=== PATIENT | male | born 1975 | race Caucasian/White ===

== ENCOUNTER 2019-05-10 17:20 | Inpatient (IN) | payer OTHER ==
--- NOTE | 2019-05-10 17:32 | PDOC ---
History of Present Illness - General Chief Complaint: Stab Wound Stated Complaint: LEFT FOOT WOUND Time Seen by Provider: 05/10/19 17:24 History Source: Patient, Friend Exam Limitations: Language Barrier - History of Present Illness Initial Comments: 05/10/19 17:32 43yo M with PMH of NIDDM (has not been on medications for 2 years) presenting to ED with friend and her for L great toe wound. Patient has had the wound for over 1m and says it is getting more painful. He feels the pain when he puts on socks and when pressure is placed, does endorse decreased sensation. He has not had a wound like this before. Denies drainage, fevers, chills, numbness/tingling, imbalance, n/v/d, chest pain, sob, urinary frequency, dysuria. He was diagnosed with DM in 2007 and ran out of medications 2y ago. PMD: none PMH: none PSH: none Allergies: nkda Social: alcohol use. Denies tobacco use 05/10/19 19:09 Joanna Art (Friend): [phone] Past History - Past Medical History Allergies/Adverse Reactions: Allergies Allergy/AdvReac Type Severity Reaction Status Date / Time No Known Allergies Allergy Unverified 05/10/19 17:23 Home Medications: Ambulatory Orders NK [No Known Home Medication] 05/10/19 Review of Systems - Review of Systems Constitutional: No: Chills, Fever, Weakness HEENTM: No: Symptoms Reported Respiratory: No: Symptoms reported Cardiac (ROS): No: Symptoms Reported ABD/GI: No: Symptoms Reported, Constipated, Diarrhea, Nausea, Vomiting, Abdominal cramping : No: Symptoms Reported Musculoskeletal: No: Symptoms Reported Integumentary: Yes: See HPI, Lesions (L plantar great toe plantar surface ulcer) . No: Erythema Neurological: No: Numbness, Seizure, Tingling, Tremors, Weakness *Physical Exam - Physical Exam General Appearance: Yes: Nourished, Appropriately Dressed. No: Apparent Distress HEENT: positive: EOMI, AMAIRANI, Normal ENT Inspection Neck: positive: Trachea midline, Supple. negative: Lymphadenopathy (R), Lymphadenopathy (L) Respiratory/Chest: positive: Lungs Clear, Normal Breath Sounds. negative: Crackles, Rales, Rhonchi, Stridor, Wheezing Cardiovascular: positive: Regular Rhythm, S1, S2, Tachycardia. negative: Edema , JVD, Murmur Vascular Pulses: Dorsalis-Pedis (R): 2+, Doralis-Pedis (L): 2+ Gastrointestinal/Abdominal: positive: Normal Bowel Sounds, Soft. negative: Tender Musculoskeletal: negative: CVA Tenderness Extremity: positive: Normal Capillary Refill. negative: Pedal Edema, Swelling, Calf Tenderness Integumentary: positive: Normal Color, Dry, Warm, Other (3cm L great toe ulceration on plantar surface, unstagable, no bony protrusions or bone surfaces seen. Mild plantar skin changes on R great toe without ulceration). negative: Rash, Swelling Neurologic: positive: manager creative services II-XII NML intact, Fully Oriented, Alert, Normal Mood/ Affect, Normal Response, Motor Strength 02/05 ED Treatment Course - LABORATORY CBC & Chemistry Diagram: 05/10/19 18:10 05/10/19 18:10 Medical Decision Making - Medical Decision Making 05/10/19 17:46 43yo M with PMH of NIDDM (has not been on medications for 2 years) presenting to ED with friend and her for L great toe wound. Patient has had the wound for over 1m and says it is getting more painful. He feels the pain when he puts on socks and when pressure is placed, does endorse decreased sensation. He has not had a wound like this before. Denies drainage, fevers, chills, numbness/tingling, imbalance, n/v/d, chest pain, sob, urinary frequency, dysuria. He was diagnosed with DM in 2007 and ran out of medications 2y ago. Vitals: hr 102, normotensive 99.3 oral temp. Pt refusing rectal temp. PE: 2-3cm circular ulcer on plantar surface of L great toe. No surrounding erythema or warmth, no fluctuance. unstagable. No drainage. sensation intact. not ttp. R toe ulceration developing. Patient likely has diabetic foot ulcer from uncontrolled DM. Will get basic labs , coags, ua and xray of foot to check for bony involvement. wound cultures. Pt would benefit from admission for antibiotics, wound debridement and care. will order cxr and ekg. Will start antibiotics (Rocephin 1g), will place ID consult. 05/10/19 18:43 No white count, does not need cultures at this time. Will give fluids for tachycardia. Labs wnl. gluc 199. Accepted by hospitalist. *DC/Admit/Observation/Transfer Diagnosis at time of Disposition: Diabetic foot ulcer Qualifiers: Diabetic foot ulcer location: toe Diabetes mellitus type: type 2 Laterality: left Non-pressure ulcer stage: unspecified non-pressure ulcer stage Qualified Code(s): E11.621 - Type 2 diabetes mellitus with foot ulcer - Discharge Dispostion Condition at time of disposition: Good Decision to Admit order: Yes - Referrals - Patient Instructions - Post Discharge Activity
--- NOTE | 2019-05-10 17:33 | PDOC ---
Attending Attestation - Resident Resident Name: ChristineSaRuby - ED Attending Attestation I have performed the following: I have examined & evaluated the patient, The case was reviewed & discussed with the resident, I agree w/resident's findings & plan, Exceptions are as noted - HPI HPI: 05/10/19 18:05 Patient with a long history of diabetes, uncontrolled, noncompliant, presents with deep ulcer on the dorsal aspect of the left great toe. He comes in today at the suggestion of a relative, who is familiar with the complications of diabetes including amputation. He has no pain or other symptoms - Physicial Exam PE: 05/10/19 18:06 Physical exam shows that he is afebrile, with otherwise normal vital signs There is a 3 cm area of diabetic ulceration on the plantar aspect of the left great toe mild surrounding erythema. No drainage. No point tenderness. There is also a diabetic ulcer developing on the right great toe in the same area. The patient has decreased sensation in both feet, probably due to his diabetes. He also has facial erythema, telangiectasias, which suggest heavy alcohol consumption. He admits to drinking, denies smoking. - Medical Decision Making 05/10/19 18:09 Assessment: Uncontrolled diabetes, diabetic neuropathy, untreated diabetic foot ulcerations, Plan: Admit for control of diabetes, wound debridement, and antibiotics.
[2019-05-10 17:43] VITALS: BMI 29.9
[2019-05-10 18:31] LABS: BASO % 0.4 % (0-2.0); EOS % 0.8 % (0-4.5); HEMATOCRIT 39.9 % (35.4-49); HEMOGLOBIN 13.9 GM/dl (11.7-16.9); LYMPH % 22.4 % (8-40); MCH 30.1 pg (25.7-33.7); MEAN CELL VOLUME 86.1 fl (80-96); MEAN PLT VOLUME 9.4 fl (7.5-11.1); MONO % 6.1 % (3.8-10.2); NEUT % 70.3 % (42.8-82.8); PLATELET COUNT 270 K/MM3 (134-434); RBC 4.63 M/mm3 (4.00-5.60); RDW 12.2 % (11.9-15.9); WHITE BLOOD COUNT 9.2 K/mm3 (4.0-10.8)
[2019-05-10 18:42] LABS: INR 1.15 (0.82-1.09); PROTHROMBIN TIME (PATIENT) 12.8 SEC (10.2-13.0)
[2019-05-10] MEDS ORDERED: SODIUM CHLORIDE 1,000 ML IV STA (18:43)
[2019-05-10 18:47] LABS: ALBUMIN 4.6 g/dl (3.4-5.0); BILIRUBIN,TOTAL 0.8 mg/dl (0.2-1); CALCIUM 9.5 mg/dl (8.5-10); CREATININE 0.8 mg/dl (0.55-1.3); POTASSIUM 4.3 mmol/L (3.5-5.1); TOT PROT 7.9 g/dl (6.4-8.2)
[2019-05-10] MEDS ORDERED: CEFTRIAXONE 1 GM in DEXTROSE 5%-WATER - 100 ML IVPB ONE (18:57)
--- NOTE | 2019-05-10 19:23 | HP ---
CHIEF COMPLAINT: Foot ulcer PCP: None HISTORY OF PRESENT ILLNESS: 43 year-old male with a PMH significant for DM since 2007 and who has not taken any medication for at least the past two years and who has not seen a health care provider for many years. Patient presented to ED for evaluation of a deep ulcer on the plantar aspect of the left great toe. The ulcer started to develop about 1 1/2 months ago. He experiences pain when he puts his socks on and when pressure is placed. He has decreased sensation in both feel. The wound has been dry, no exudate. He denies fevers, sweats, chills. Recent Travel: No PAST MEDICAL HISTORY: Diabetes PAST SURGICAL HISTORY: None reported Social History: lives with friends in an apartment in [place], works as a patient access registrar Smoking: denies Alcohol: occasoinal beer; last beer 2 weeks ago Drugs: denies Family History: mother 80 lung obstruction; father 86 had DM; 7 siblings alive, medical conditions unknown; no children Allergies No Known Allergies Allergy (Unverified 05/10/19 17:23) HOME MEDICATIONS: Home Medications Medication Instructions Recorded NK [No Known Home Medication] 05/10/19 REVIEW OF SYSTEMS CONSTITUTIONAL: Absent: fever, chills, diaphoresis, generalized weakness, malaise, loss of appetite, weight change HEENT: Absent: rhinorrhea, nasal congestion, throat pain, throat swelling, difficulty swallowing, mouth swelling, ear pain, eye pain, visual changes CARDIOVASCULAR: Absent: chest pain, syncope, palpitations, irregular heart rate, lightheadedness , peripheral edema RESPIRATORY: Absent: cough, shortness of breath, dyspnea with exertion, orthopnea, wheezing, stridor, hemoptysis GASTROINTESTINAL: Absent: abdominal pain, abdominal distension, nausea, vomiting, diarrhea, constipation, melena, hematochezia GENITOURINARY: Absent: dysuria, frequency, urgency, hesitancy, hematuria, flank pain, genital pain MUSCULOSKELETAL: +ulcers bilateral great toes, no pain Absent: myalgia, arthralgia, joint swelling, back pain, neck pain SKIN: Absent: rash, itching, pallor HEMATOLOGIC/IMMUNOLOGIC: Absent: easy bleeding, easy bruising, lymphadenopathy, frequent infections ENDOCRINE: Absent: unexplained weight gain, unexplained weight loss, heat intolerance, cold intolerance NEUROLOGIC: Absent: headache, focal weakness or paresthesias, dizziness, unsteady gait, seizure, mental status changes, bladder or bowel incontinence PSYCHIATRIC: Absent: anxiety, depression, suicidal or homicidal ideation, hallucinations. PHYSICAL EXAMINATION Vital Signs - 24 hr 05/10/19 17:23 Temperature 99.3 F Pulse Rate 102 H Respiratory 18 Rate Blood Pressure 121/89 O2 Sat by Pulse 98 Oximetry (%) GENERAL: Awake, alert, and fully oriented, in no acute distress. HEAD: Facial erythema, telangiectasis EYES: Pupils equal, round and reactive to light, extraocular movements intact, sclera injected appearance EARS, NOSE, THROAT: Ears normal, nares patent, oropharynx clear without exudates. Moist mucous membranes. Poor dentition. LUNGS: Breath sounds equal, clear to auscultation bilaterally. No wheezes, and no crackles. No accessory muscle use. HEART: Regular rate and rhythm, S1 and S2 ABDOMEN: Soft, nontender, not distended UPPER EXTREMITIES: 2+ pulses, warm, well-perfused. No cyanosis. No clubbing. No peripheral edema. LOWER EXTREMITIES: 2+ pulses, warm, well-perfused. No calf tenderness. No peripheral edema. 3cm circular ulcer plantar surface of left great toe, dessicated; right great toe plantar surface ulcer ~1cm NEUROLOGICAL: Cranial nerves II-XII intact. Normal speech. Normal gait. Laboratory Results - last 24 hr 05/10/19 05/10/19 05/10/19 18:10 18:10 18:10 WBC 9.2 RBC 4.63 Hgb 13.9 Hct 39.9 MCV 86.1 MCH 30.1 MCHC 35.0 RDW 12.2 Plt Count 270 MPV 9.4 Absolute Neuts (auto) 6.4 Neutrophils % 70.3 Lymphocytes % 22.4 Monocytes % 6.1 Eosinophils % 0.8 Basophils % 0.4 PT with INR 12.8 INR 1.15 Sodium 136 Potassium 4.3 Chloride 102 Carbon Dioxide 26 Anion Gap 8 BUN 25.0 H Creatinine 0.8 Est GFR (CKD-EPI)AfAm 128.60 Est GFR (CKD-EPI)NonAf 110.96 Random Glucose 199 H Calcium 9.5 Total Bilirubin 0.8 AST 20 ALT 16 Alkaline Phosphatase 109 Total Protein 7.9 Albumin 4.6 ASSESSMENT/PLAN 43 year-old male with a PMH of diabetes on no medication for years. Left great toe diabetic ulcer Right great toe diabetic ulcer --xrays pending; will likely need MRI to r/o osteo --no fever, no leukocytosis, observe off antibiotics --podiatry consult --ID consult Diabetes mellitus --A1C pending --Novolog sliding scale coverage FEN Fluids: PO intake adequate Electrolytes: replete as indicated Nutrition: diabetic diet DVT prophylaxis: subq heparin Dispo: continues to require inpatient care. Full code. Visit type - Emergency Visit Emergency Visit: Yes ED Registration Date: 05/10/19 Care time: The patient presented to the Emergency Department on the above date and was hospitalized for further evaluation of their emergent condition. - New Patient This patient is new to me today: Yes Date on this admission: 05/11/19 - Critical Care Critical Care patient: No
[2019-05-10] MEDS ORDERED: cefTRIAXone SODIUM 1 GM VIAL ONE (19:25)
[2019-05-11 07:42] LABS: BASO % 0.3 % (0-2.0); EOS % 1.6 % (0-4.5); HEMATOCRIT 36.9 % (35.4-49); HEMOGLOBIN 12.6 GM/dl (11.7-16.9); LYMPH % 25.7 % (8-40); MCH 29.8 pg (25.7-33.7); MCHC 34.1 g/dl (32.0-35.9); MEAN CELL VOLUME 87.4 fl (80-96); MEAN PLT VOLUME 9.4 fl (7.5-11.1); MONO % 6.8 % (3.8-10.2); NEUT % 65.6 % (42.8-82.8); PLATELET COUNT 225 K/MM3 (134-434); RBC 4.23 M/mm3 (4.00-5.60); RDW 12.4 % (11.9-15.9); WHITE BLOOD COUNT 6.8 K/mm3 (4.0-10.8)
[2019-05-11 07:57] LABS: ALBUMIN 3.7 g/dl (3.4-5.0); BILIRUBIN,TOTAL 0.7 mg/dl (0.2-1); CREATININE 0.8 mg/dl (0.55-1.3); MAGNESIUM 1.9 mg/dL (1.8-2.4); POTASSIUM 4.6 mmol/L (3.5-5.1); TOT PROT 6.6 g/dl (6.4-8.2)
--- NOTE | 2019-05-11 11:09 | CON.ID ---
Consult - Alcohol/Substance Use Hx Alcohol Use: Yes (OCCASSIONAL) - Smoking History Smoking history: Never smoked Home Medications - Allergies Allergies/Adverse Reactions: Allergies Allergy/AdvReac Type Severity Reaction Status Date / Time No Known Allergies Allergy Unverified 05/10/19 17:23 - Home Medications Home Medications: Ambulatory Orders NK [No Known Home Medication] 05/10/19 Physical Exam Vital Signs: Vital Signs Temperature 97.6 F 05/10/19 23:36 Pulse Rate 65 05/10/19 23:36 Respiratory Rate 19 05/10/19 23:36 Blood Pressure 119/79 05/10/19 23:36 O2 Sat by Pulse Oximetry (%) 98 05/10/19 23:36 Labs: CBC, BMP 05/11/19 07:15 05/11/19 07:15
--- NOTE | 2019-05-11 12:16 | CONSULT ---
Consult - text type - Consultation Consultation Note: Podiatry Consultation: 43 year old poorly controlled diabetic male presented to ED for admission on guidance of his family members for non-healing wound left great toe. Patient relates a 2+ month history of non-healing ulcer, for which he has not sought treatment. He works as a education trainer, does not check his blood sugars regularly and does not treat the ulcer. He denies F/V/N/C/SOB/CP. Currently afebrile. Past Medical History: poorly controlled diabetic, HTN Meds: noted in chart ALL: NKMA REN: Pedal pulses palpable, TG wnl, CFT brisk to all toes. On the left foot, there is a plantar hallux IPJ diabetic ulcer with fibrogranular base, hyperkeratotic edges, no probing to bone, no exposed bone, scant purulence, no fluctuance, no soft tissue crepitus, no streaking cellulitis. Gross digital edema. No ischemic changes. L foot XR: no gross destruction suggestive of osteomyelitis Wound Cx: pending Imp: 43 year old diabetic male with left great toe diabetic ulcer 1. IV abx per infectious disease 2. MRI L foot to evaluate for osteomyelitis left great toe 3. Discussed treatment options at length with patient, he would like to treat with IV abx. 4. Will f/u MRI. Thank you for the courtesy of this consultation. Erma Beckwith DPM
--- NOTE | 2019-05-11 13:08 | PN ---
Physical Exam: SUBJECTIVE: Patient seen and examined OBJECTIVE: Vital Signs Period Temp Pulse Resp BP Sys/Ding Pulse Ox Last 24 Hr 97.6 F-99.3 F 65-102 18-19 119-124/79-89 98-100 GENERAL: The patient is awake, alert, and fully oriented, in no acute distress. HEAD: Normal with no signs of trauma. EYES: PERRL, extraocular movements intact, sclera anicteric, conjunctiva clear. No ptosis. ENT: Ears normal, nares patent, oropharynx clear without exudates, moist mucous membranes. NECK: Trachea midline, full range of motion, supple. LUNGS: Breath sounds equal, clear to auscultation bilaterally, no wheezes, no crackles, no accessory muscle use. HEART: Regular rate and rhythm, S1, S2 without murmur, rub or gallop. ABDOMEN: Soft, nontender, nondistended, normoactive bowel sounds, no guarding, no rebound, no hepatosplenomegaly, no masses. EXTREMITIES: 2+ pulses, warm, well-perfused, no edema. NEUROLOGICAL: Cranial nerves II through XII grossly intact. Normal speech, gait not observed. PSYCH: Normal mood, normal affect. SKIN: Warm, dry, normal turgor, no rashes or lesions noted Laboratory Results - last 24 hr 05/10/19 05/10/19 05/10/19 18:10 18:10 18:10 WBC 9.2 RBC 4.63 Hgb 13.9 Hct 39.9 MCV 86.1 MCH 30.1 MCHC 35.0 RDW 12.2 Plt Count 270 MPV 9.4 Absolute Neuts (auto) 6.4 Neutrophils % 70.3 Lymphocytes % 22.4 Monocytes % 6.1 Eosinophils % 0.8 Basophils % 0.4 PT with INR 12.8 INR 1.15 PTT (Actin FS) Sodium 136 Potassium 4.3 Chloride 102 Carbon Dioxide 26 Anion Gap 8 BUN 25.0 H Creatinine 0.8 Est GFR (CKD-EPI)AfAm 128.60 Est GFR (CKD-EPI)NonAf 110.96 POC Glucometer Random Glucose 199 H Hemoglobin A1c % Calcium 9.5 Magnesium Total Bilirubin 0.8 AST 20 ALT 16 Alkaline Phosphatase 109 Total Protein 7.9 Albumin 4.6 Urine Color Urine Appearance Urine pH Urine Protein Urine Glucose (UA) Urine Ketones Urine Blood Urine Nitrite Urine Bilirubin Urine Urobilinogen Ur Leukocyte Esterase Urine RBC Urine WBC 05/10/19 05/10/19 05/11/19 18:10 19:20 06:21 WBC RBC Hgb Hct MCV MCH MCHC RDW Plt Count MPV Absolute Neuts (auto) Neutrophils % Lymphocytes % Monocytes % Eosinophils % Basophils % PT with INR INR PTT (Actin FS) Sodium Potassium Chloride Carbon Dioxide Anion Gap BUN Creatinine Est GFR (CKD-EPI)AfAm Est GFR (CKD-EPI)NonAf POC Glucometer 178 Random Glucose Hemoglobin A1c % 8.1 H Calcium Magnesium Total Bilirubin AST ALT Alkaline Phosphatase Total Protein Albumin Urine Color Yellow Urine Appearance Clear Urine pH 5.5 Urine Protein 1+ H Urine Glucose (UA) 1+ Urine Ketones Negative Urine Blood Negative Urine Nitrite Negative Urine Bilirubin Negative Urine Urobilinogen 0.2 Ur Leukocyte Esterase Negative Urine RBC 0-2 Urine WBC 0-2 05/11/19 05/11/19 05/11/19 07:15 07:15 07:15 WBC 6.8 RBC 4.23 Hgb 12.6 Hct 36.9 MCV 87.4 MCH 29.8 MCHC 34.1 RDW 12.4 Plt Count 225 MPV 9.4 Absolute Neuts (auto) 4.5 Neutrophils % 65.6 Lymphocytes % 25.7 Monocytes % 6.8 Eosinophils % 1.6 D Basophils % 0.3 PT with INR INR PTT (Actin FS) 28.0 Sodium 139 Potassium 4.6 Chloride 104 Carbon Dioxide 28 Anion Gap 7 L BUN 21.0 H Creatinine 0.8 Est GFR (CKD-EPI)AfAm 128.60 Est GFR (CKD-EPI)NonAf 110.96 POC Glucometer Random Glucose 210 H Hemoglobin A1c % Calcium 9.0 Magnesium 1.9 Total Bilirubin 0.7 AST 17 ALT 13 Alkaline Phosphatase 94 D Total Protein 6.6 Albumin 3.7 Urine Color Urine Appearance Urine pH Urine Protein Urine Glucose (UA) Urine Ketones Urine Blood Urine Nitrite Urine Bilirubin Urine Urobilinogen Ur Leukocyte Esterase Urine RBC Urine WBC Active Medications Generic Name Dose Route Start Last Admin Trade Name Freq PRN Reason Stop Dose Admin Heparin Sodium (Porcine) 5,000 unit 05/11/19 14:00 Heparin - SQ TID [facility] Insulin Aspart 0 units 05/11/19 16:30 Novolog Vial SQ ACHS [facility] Protocol ASSESSMENT/PLAN 43 year-old male with a PMH of diabetes on no medication for years. Left great toe diabetic ulcer Right great toe diabetic ulcer --right foot xray: significant soft tissue swelling --left foot xray: pending dictaton --MRI bilateral feet ordered --no fever, no leukocytosis, observe off antibiotics pending MRI --podiatry following --ID following Diabetes mellitus --A1C 8.1 --Novolog sliding scale coverage FEN Fluids: PO intake adequate Electrolytes: replete as indicated Nutrition: diabetic diet DVT prophylaxis: subq heparin Dispo: continues to require inpatient care. Full code. Visit type - Emergency Visit Emergency Visit: Yes ED Registration Date: 05/10/19 Care time: The patient presented to the Emergency Department on the above date and was hospitalized for further evaluation of their emergent condition. - New Patient This patient is new to me today: No - Critical Care Critical Care patient: No
--- NOTE | 2019-05-11 13:58 | EKG ---
Test Reason : Blood Pressure : / mmHG Vent. Rate : 074 BPM Atrial Rate : 074 BPM P-R Int : 136 ms QRS Dur : 094 ms QT Int : 372 ms P-R-T Axes : 038 017 020 degrees QTc Int : 412 ms NORMAL SINUS RHYTHM NORMAL ECG NO PREVIOUS ECGS AVAILABLE Confirmed by LEXI VELASCO MD ([id number]) on 05/11/2019 1:58:17 PM Referred By: MD GRAF Confirmed By:LEXI VELASCO MD
[2019-05-11] MEDS: HEPARIN NA (PORCINE) 5,000 UNITS/ML 1ML VIAL SQ SCH ×2 (14:29→21:27)
[2019-05-11] MEDS: INSULIN (NOVOLOG) ASPART 100 UNITS/ML 10ML VIAL SQ SCH ×2 (16:49→21:27)
[2019-05-12] MEDS: INSULIN (NOVOLOG) ASPART 100 UNITS/ML 10ML VIAL SQ SCH (06:20)
[2019-05-12] MEDS: HEPARIN NA (PORCINE) 5,000 UNITS/ML 1ML VIAL SQ SCH (06:21)
--- NOTE | 2019-05-12 11:38 | PN ---
Progress Note (short form) - Note Progress Note: PODIATRY 43 Y/O MALE B/L HALLUX ULCERATION WITH UNDERLYING OSTEO; DIAGNOSED ON MRI WILL DISUSS WITH DR COKER FOR HALFWAY IV ABX; IF BIOPSY IS REQUESTED BY ID WE CAN PERFORM EARLY NEXT WEEK OR PATIENT CAN BE D/C AND BIOPSY CAN BE PERFORMED AN OUTPATIENT GIVEN PATIENT IS STABLE. WILL DISCUSS WITH ID AND FOLLOW UP .
--- NOTE | 2019-05-12 12:11 | PN ---
Progress Note, Physician - Current Medication List Current Medications: Active Medications Heparin Sodium (Porcine) (Heparin -) 5,000 unit SQ TID COUNT INCLUDES THE [facility] Last Admin: 05/12/19 06:21 Dose: 5,000 unit Insulin Aspart (Novolog Vial) 0 units SQ ACHS COUNT INCLUDES THE [facility]; Protocol Last Admin: 05/12/19 06:20 Dose: 2 units - Objective Vital Signs: Vital Signs Temperature 98.6 F 05/12/19 06:00 Pulse Rate 68 05/12/19 06:00 Respiratory Rate 18 05/12/19 08:37 Blood Pressure 97/62 05/12/19 06:00 O2 Sat by Pulse Oximetry (%) 98 05/12/19 08:37 Labs: CBC, BMP 05/11/19 07:15 05/11/19 07:15 INR, PTT INR 1.15 (0.82-1.09) 05/10/19 18:10
[2019-05-12 13:46] VITALS: BP 134/84; PULSE 78; TEMP 99
--- NOTE | 2019-05-12 14:51 | DS ---
Physical Exam: SUBJECTIVE: Patient seen and examined OBJECTIVE: Vital Signs Period Temp Pulse Resp BP Sys/Ding Pulse Ox Last 24 Hr 98.2 F-99.0 F 63-78 16-19 97-134/62-84 98-100 PHYSICAL EXAM GENERAL: The patient is awake, alert, and fully oriented, in no acute distress. HEAD: Normal with no signs of trauma. EYES: PERRL, extraocular movements intact, sclera anicteric, conjunctiva clear. ENT: Ears normal, nares patent, oropharynx clear without exudates, moist mucous membranes. NECK: Trachea midline, full range of motion, supple. LUNGS: Breath sounds equal, clear to auscultation bilaterally, no wheezes, no crackles, no accessory muscle use. HEART: Regular rate and rhythm, S1, S2 without murmur, rub or gallop. ABDOMEN: Soft, nontender, nondistended, normoactive bowel sounds, no guarding, no rebound, no hepatosplenomegaly, no masses. EXTREMITIES: 2+ pulses, warm, well-perfused, no edema. NEUROLOGICAL: Cranial nerves II through XII grossly intact. Normal speech, gait not observed. PSYCH: Normal mood, normal affect. SKIN: Warm, dry, normal turgor, no rashes or lesions noted. LABS Laboratory Results - last 24 hr 05/11/19 05/11/19 05/12/19 16:40 21:22 06:14 POC Glucometer 189 202 191 HOSPITAL COURSE: Date of Admission:05/10/19 Date of Discharge: 05/12/19 43 year-old male with a PMH significant for DM since 2007 and who has not taken any medication for at least the past two years and who has not seen a health care provider for many years. Patient presented to ED for evaluation of a deep ulcer on the plantar aspect of the left great toe. The ulcer started to develop about 1 1/2 months ago. He experiences pain when he puts his socks on and when pressure is placed. He has decreased sensation in both feel. The wound has been dry, no exudate. He denies fevers, sweats, chills. Left great toe diabetic ulcer Right great toe diabetic ulcer --MRI showed osteo in both right and left great toes --seen and evaluated by podiatry and ID --plan is to follow up with podiatry on 05/16 at the [facility], will be set up for a bone biopsy; will need m[facility] antibiotics Diabetes mellitus --A1C 8.1 --Novolog sliding scale coverage Minutes to complete discharge: 35 Discharge Summary Reason For Visit: DIABETIC FOOT ULCER. Current Active Problems Diabetic foot ulcer (Acute) Condition: Stable - Instructions Diet, Activity, Other Instructions: You have been diagnosed with osteomyelitis of your right and left great toes. This is an infection that goes into the bones in your toes. You need to have a biopsy done so that the appropriate antibiotics can be ordered for you. An appointment has been made for you with Dr. Beckwith at the [facility] at [facility] for MAY 16 AT 3:00PM. The wound clinic is located on the 5th floor of the hospital. An appointment has also been made for you with Dr. Vasquez at the [facility] for MAY 19 AT 3:15PM. You need follow up care for your diabetes. Referrals: Reilly Beckwith MD [Staff Physician] - 05/16/19 3:00 pm Martin Vasquez MD [Staff Physician] - 05/19/19 3:15 pm Disposition: HOME - Home Medications Comprehensive Discharge Medication List: Ambulatory Orders NK [No Known Home Medication] 05/10/19 This patient is new to me today: No Emergency Visit: Yes ED Registration Date: 05/10/19 Care time: The patient presented to the Emergency Department on the above date and was hospitalized for further evaluation of their emergent condition. Critical Care patient: No - Discharge Referral Referred to [facility] No
== END 2019-05-12 15:18 | disposition home or self-care (01) | DRG 344 ==
LOC: FER 17:20 → FM/S 18:51 → UNDOADMIN 22:18 → FM/S 22:18
PROVIDERS: ADMIT Internal Medicine; ATTEND Nurse Practitioner Acute Care
DX: E11.621 Type 2 diabetes mellitus with foot ulcer (principal); L97.529 Non-pressure chronic ulcer of other part of left foot with unspecified severity; M86.8X7 Other osteomyelitis, ankle and foot; E11.65 Type 2 diabetes mellitus with hyperglycemia; E11.69 Type 2 diabetes mellitus with other specified complication; E11.40 Type 2 diabetes mellitus with diabetic neuropathy, unspecified; Z91.14 Patient's other noncompliance with medication regimen
CPT/HCPCS: 36415; 71046-TC-FY; 73630-TC-LT; 73630-TC-RT-FY; 73718-TC-LT; 73718-TC-RT; 80053; 81003; 81015; 82962; 83036; 83735; 85025; 85610; 85730; 87040; 87070; 87086; 87205; 93005; 99283-25; J1644; J7030

== ENCOUNTER 2019-05-22 09:36 | Inpatient (IN) | payer OTHER ==
--- NOTE | 2019-05-22 09:59 | PDOC ---
History of Present Illness - General Chief Complaint: Wound Stated Complaint: WOUND Time Seen by Provider: 05/22/19 09:59 History Source: Patient Exam Limitations: No Limitations - History of Present Illness Initial Comments: 43 year old male with PMH DM (medication noncompliance), osteomyelitis of the L/ R great toes presented to ED for admission for wound care. Pt complained of left great toe pain. Pt reported the right toe pain has improved from since his recent admission for osteomyelitis. Pt reported he has follow up with wound care since discharge. Call received from Wound Care - no antibiotics to be given, plan for biopsy tomorrow. PCP: none Past History - Past Medical History Allergies/Adverse Reactions: Allergies Allergy/AdvReac Type Severity Reaction Status Date / Time No Known Allergies Allergy Verified 05/22/19 09:47 Home Medications: Ambulatory Orders Sitagliptin Phosphate [Januvia] 100 mg PO BID 05/16/19 COPD: No Diabetes: Yes - Suicide/Smoking/Psychosocial Hx Smoking History: Never smoked Have you smoked in the past 12 months: No Hx Alcohol Use: No Drug/Substance Use Hx: No Review of Systems - Review of Systems Able to Perform ROS?: Yes Comments:: General: denied fever, chills, generalized weakness. HEENT: denied sore throat, rhinorrhea, ear pain. Cardiovascular: denied chest pain, palpitations, syncope, diaphoresis. Respiratory: denied shortness of breath, cough, sputum production, hemoptysis. Gastrointestinal: denied abdominal pain, nausea, vomiting, diarrhea, constipation, blood in stool. Genitourinary: denied dysuria, increased urinary frequency, hematuria, urinary incontinence, flank pain. Back: denied back pain. Musculoskeletal: admitted to toe pain. denied muscle pain. Neurological: denied headache, dizziness, numbness, tingling, weakness. Integumentary: admitted to rash, ulcer. denied laceration, abrasion. Hematologic/Lymphatic: denied bruising or bleeding. *Physical Exam - Vital Signs Last Vital Signs Temp Pulse Resp BP Pulse Ox 98.3 F 77 16 127/78 99 05/22/19 09:44 05/22/19 09:44 05/22/19 09:44 05/22/19 09:44 05/22/19 09:44 - Physical Exam Comments: Constitutional: Well-nourished, Well-developed, appearing stated age. HEENT: head is normocephalic, atraumatic. EOMI. PERRLA. Neck: supple. Full ROM. Cardiovascular: regular heart rhythm. no murmurs. no pericardial friction rub. Respiratory: clear to auscultation bilaterally. no crackles, rhonchi or wheezing. no stridor. Gastrointestinal: soft, nontender. normal bowel sounds. no rebound, guarding, masses. Extremities: peripheral pulses intact. no lower extremity edema. Neurological: CN 2-12 grossly intact. moves all four extremities. Psych: awake, alert, oriented x3. follows commands. answers questions appropriately. ED Treatment Course - LABORATORY CBC & Chemistry Diagram: 05/23/19 06:30 05/23/19 06:30 Medical Decision Making - Medical Decision Making 43 year old male with known osteomyelitis to the L/R great toes, IDDM ( noncompliant) sent to ED by wound care for admission of osteomyelitis for bone biopsy tomorrow. Chart review: -Admitted 05/10/19 for diabetic foot ulcers -Right LE MRI report: Name: [facility] Phys: Haven Glover NP : 1975 Age: 43 Sex: M [facility] Acct : [id number] Loc: /S [address] [place] [address]. Exam Date: 05/11/19 Status: [place] [address] Unit Number: [id number] EXAM#: TYPE/EXAM: RESULT: [id number] MRI/LOWER EXTREMITY MRI W/O- RIGHT MRI of the left foot . Clinical history: Rule out osteomyelitis. Coronal, sagittal and axial T1, T2-weighted images were obtained. There is diffuse soft tissue swelling surrounding the great toe compatible cellulitis. There is abnormal signal intensity changes in the bone marrow of the distal phalanx of the great toe compatible osteomyelitis. No evidence fracture or malalignment. Moderate degenerative changes metatarsophalangeal joints. Impression: Osteomyelitis of the distal phalanx of the great toe with perifocal soft tissue swelling compatible with cellulitis. Reported By: Lisandro Paulson MD 05/11/19 1634 -Left LE MRI report: Name: [facility] Phys: Haven Glover NP : 1975 Age: 43 Sex: M [facility] Acct : [id number] Loc: FM/S [address] Exam Date: 05/11/19 Status: [place] [address] Unit Number: [id number] EXAM#: TYPE/EXAM: RESULT: MRI/LOWER EXTREMITY MRI W/O- LEFT MRI of the right foot . Clinical history: Diabetic rule out osteomyelitis of great toe. Coronal, sagittal and axial T1, T2-weighted images were obtained. There is soft tissue swelling surrounding the medial aspect of the of the great toe. There is minimal edema in the bone marrow of the distal phalanx of the great toe suspected on axial T2 image #13 and on sagittal T2 image #18 compatible with a small focus of osteomyelitis. There is fluid in the first metatarsophalangeal joint. No evidence of fracture or malalignment. Impression: Osteomyelitis distal aspect of the distal phalanx of the great toe with perifocal soft tissue swelling compatible cellulitis. No evidence of fracture or malalignment. Reported By: Lisandro Paulson MD 05/11/19 1636 -Discharged 05/12/19 with Podiatry F/U 05/16 at [facility] and OP bone biopsy with lobsterman antibiotics Initial Vital Signs Temp Pulse Resp BP Pulse Ox 98.3 F 77 16 127/78 99 05/22/19 09:44 05/22/19 09:44 05/22/19 09:44 05/22/19 09:44 05/22/19 09:44 Afebrile. No tachycardia. No tachypnea. No hypotension. No hypoxia on room air. Labs ordered: CBC, CMP, lactate, blood cultures, VBG, acetone Imaging ordered: CXR Medications ordered: tylenol IV once, normal saline bolus 1000 cc once EKG performed at 1051: rate 68, regular rhythm, normal axis, normal intervals, flipped T III, otherwise no acute ST changes. 05/22/19 10:48 CXR report: Name: [facility] Phys: Elsi Rawls : 1975 Age: 43 Sex: M [facility] Acct: [id number] Loc: [facility] [address] [facility] Exam Date: 05/22/19 Status: CAMMY Myles Unit Number: [id number] EXAM#: TYPE/EXAM: RESULT: [id number] RAD/CHEST X-RAY PORTABLE* Sepsis. Portable chest x-ray. Comparison study. May 10, 2019. Patient is rotated to the right side. Unremarkable contour of the cardiomediastinal silhouette. The lungs are well aerated without evidence of a pulmonary infiltrates, atelectasis. No evidence of bulky hilar adenopathy. No evidence of vascular congestive changes. No pneumothorax, or large pleural effusion is seen. The visualized osseous structures appear intact. Impression. No evidence of active pulmonary disease. Reported By: Darius Hi MD 05/22/19 1033 05/22/19 13:48 CBC WBC 6.3 K/mm3 (4.0-10.0) 05/22/19 11:15 RBC 4.32 M/mm3 (4.00-5.60) 05/22/19 11:15 Hgb 12.8 GM/dL (11.7-16.9) 05/22/19 11:15 Hct 36.7 % (35.4-49) 05/22/19 11:15 MCV 84.8 fl (80-96) 05/22/19 11:15 MCH 29.6 pg (25.7-33.7) 05/22/19 11:15 MCHC 34.9 g/dl (32.0-35.9) 05/22/19 11:15 RDW 13.3 % (11.9-15.9) 05/22/19 11:15 Plt Count 228 K/MM3 (134-434) 05/22/19 11:15 MPV 9.6 fl (7.5-11.1) 05/22/19 11:15 Absolute Neuts (auto) 4.2 K/mm3 (1.5-8.0) 05/22/19 11:15 Neutrophils % 66.2 % (42.8-82.8) 05/22/19 11:15 Lymphocytes % 26.1 % (8-40) 05/22/19 11:15 Monocytes % 6.4 % (3.8-10.2) 05/22/19 11:15 Eosinophils % 0.9 % (0-4.5) 05/22/19 11:15 Basophils % 0.4 % (0-2.0) 05/22/19 11:15 Nucleated RBC % 0 % (0-0) 05/22/19 11:15 No leukocytosis. No anemia. CMP Sodium 138 mmol/L (136-145) 05/22/19 11:15 Potassium 4.2 mmol/L (3.5-5.1) 05/22/19 11:15 Chloride 104 mmol/L (98-107) 05/22/19 11:15 Carbon Dioxide 29 mmol/L (21-32) 05/22/19 11:15 Anion Gap 5 MMOL/L (8-16) L 05/22/19 11:15 BUN 18.2 mg/dL (7-18) H 05/22/19 11:15 Creatinine 0.8 mg/dL (0.55-1.3) 05/22/19 11:15 Est GFR (CKD-EPI)AfAm 128.60 05/22/19 11:15 Est GFR (CKD-EPI)NonAf 110.96 05/22/19 11:15 Random Glucose 158 mg/dL (74-106) H 05/22/19 11:15 Lactic Acid 1.0 mmol/L (0.4-2.0) 05/22/19 11:15 Calcium 9.5 mg/dL (8.5-10.1) 05/22/19 11:15 Total Bilirubin 0.5 mg/dL (0.2-1) 05/22/19 11:15 AST 10 U/L (15-37) L 05/22/19 11:15 ALT 18 U/L (13-61) 05/22/19 11:15 Alkaline Phosphatase 102 U/L (45-117) 05/22/19 11:15 Troponin I 0.00 ng/ml (0.00-0.05) 05/22/19 11:15 Total Protein 7.4 g/dl (6.4-8.2) 05/22/19 11:15 Albumin 3.9 g/dl (3.4-5.0) 05/22/19 11:15 No electrolyte abnormalities. No RAMIN. No lactic acidosis. Troponin undetectable. Urine Test Results Urine Color Yellow 05/22/19 13:30 Urine Appearance Clear 05/22/19 13:30 Urine pH 5.5 (5.0-8.0) 05/22/19 13:30 Ur Specific [place] 1.010 (1.010-1.035) 05/22/19 13:30 Urine Protein Negative (NEGATIVE) 05/22/19 13:30 Urine Glucose (UA) Negative (NEGATIVE) 05/22/19 13:30 Urine Ketones Negative (NEGATIVE) 05/22/19 13:30 Urine Blood Negative (NEGATIVE) 05/22/19 13:30 Urine Nitrite Negative (NEGATIVE) 05/22/19 13:30 Urine Bilirubin Negative (NEGATIVE) 05/22/19 13:30 Ur Leukocyte Esterase Negative (NEGATIVE) 05/22/19 13:30 Negative for UTI. Pt has no PCP. Pending admission to Dr. Steinberg. 05/22/19 15:09 Dr. Rogers spoke with Dr. Steinberg, who agrees with admission. Pending admission. *DC/Admit/Observation/Transfer Diagnosis at time of Disposition: Osteomyelitis - Discharge Dispostion Disposition: TRANSFER ACUTE CARE/OTHER HOSP Condition at time of disposition: Stable Decision to Admit order: Yes - Referrals - Patient Instructions - Post Discharge Activity
[2019-05-22] MEDS ORDERED: SODIUM CHLORIDE 1,000 ML IV STA (10:00)
[2019-05-22] MEDS ORDERED: ACETAMINOPHEN 1000 MG/100 ML VIAL (NON FORMULARY) IVPB ONE (10:00)
[2019-05-22 11:26] LABS: VENOUS PC02 48.3 mmHg (41-51); VENOUS PH 7.37 (7.31-7.41)
[2019-05-22 11:40] LABS: VENOUS PO2 < 49.0 mmHg (30-40)
[2019-05-22 11:47] LABS: BASO % 0.4 % (0-2.0); EOS % 0.9 % (0-4.5); HEMATOCRIT 36.7 % (35.4-49); HEMOGLOBIN 12.8 GM/dL (11.7-16.9); LYMPH % 26.1 % (8-40); MCH 29.6 pg (25.7-33.7); MCHC 34.9 g/dl (32.0-35.9); MEAN CELL VOLUME 84.8 fl (80-96); MEAN PLT VOLUME 9.6 fl (7.5-11.1); MONO % 6.4 % (3.8-10.2); NEUT % 66.2 % (42.8-82.8); PLATELET COUNT 228 K/MM3 (134-434); RBC 4.32 M/mm3 (4.00-5.60); RDW 13.3 % (11.9-15.9); WHITE BLOOD COUNT 6.3 K/mm3 (4.0-10.0)
[2019-05-22 12:00] LABS: INR 1.01 (0.83-1.09); PROTHROMBIN TIME (PATIENT) 11.9 SEC (9.7-13.0)
[2019-05-22 12:03] LABS: ALBUMIN 3.9 g/dl (3.4-5.0); BILIRUBIN,TOTAL 0.5 mg/dL (0.2-1); BLOOD UREA NITROGEN 18.2 mg/dL (7-18); CALCIUM 9.5 mg/dL (8.5-10.1); CREATININE 0.8 mg/dL (0.55-1.3); POTASSIUM 4.2 mmol/L (3.5-5.1); TOT PROT 7.4 g/dl (6.4-8.2)
[2019-05-22 13:47] LABS: PH,URINE 5.5 (5.0-8.0); URINE APPEARANCE CLEAR; URINE BILIRUBIN NEGATIVE (NEGATIVE); URINE COLOR YELLOW; URINE GLUCOSE (UA) NEGATIVE (NEGATIVE); URINE KETONE NEGATIVE (NEGATIVE); URINE LEUK ESTERASE NEGATIVE (NEGATIVE); URINE NITRITE NEGATIVE (NEGATIVE); URINE PROTEIN NEGATIVE (NEGATIVE); URINE UROBILINOGEN 0.2 mg/dL (0.2-1.0)
--- NOTE | 2019-05-22 13:53 | PDOC ---
Documentation entered by Violet Streeter SCRIBE, acting as scribe for Casandra Bermudez MD. Casandra Bermudez MD: This documentation has been prepared by the Ferdinand benito Adrianna, SCRIBE, under my direction and personally reviewed by me in its entirety. I confirm that the documentation accurately reflects all work, treatment, procedures, and medical decision making performed by me. Attending Attestation - Resident Resident Name: Elsi Rawls - HPI HPI: The patient is a 43 year old male, with a significant PMH of DM (noncompliant with medications) and osteomyelitis of the L and R great toes, who presents to the ED for admission for wound care. Patient notes his R great toe pain has progressively gotten better since his admission 10 days ago for osteomyelitis, but he now reports L great toe pain. Wound Care asks that no antibiotics are to be given, and the patient will have a biopsy tomorrow. Allergies: NKA, NKDA Surgical History: None reported Social History: Denies EtOH, tobacco, or illicit drug use PCP: None - Physicial Exam PE: 05/22/19 13:50 Agree with resident exam. Patient is alert and oriented and in no acute distress. + 1 cm wound on L second toe without surrounding erythema. - Medical Decision Making 05/22/19 13:51 Pt presents to the ED after sent in for admission for osteo of the toe. Podiatry requesting that antibiotics not be started because of planned bone biopsy. Will check labs and admit to medicine. Heart Score/ECG Review - Age Age: </= 45 - ECG Intrepretation Rhythm: Regular Rhythm - ECG Impressions Normal ECG: Yes ED Treatment Course - LABORATORY CBC & Chemistry Diagram: 05/22/19 11:15 05/22/19 11:15 - ADDITIONAL ORDERS Additional order review: Laboratory Results 05/22/19 05/22/19 05/22/19 13:50 13:30 11:15 PT with INR INR PTT (Actin FS) VBG pH POC VBG pCO2 POC VBG pO2 VBG HCO3 VBG O2 Sat (Fred) VBG Base Excess Sodium Potassium Chloride Carbon Dioxide Anion Gap BUN Creatinine Est GFR (CKD-EPI)AfAm Est GFR (CKD-EPI)NonAf Random Glucose Lactic Acid Calcium Total Bilirubin AST ALT Alkaline Phosphatase Troponin I Total Protein Albumin Urine Color Yellow Urine Appearance Clear Urine pH 5.5 Ur Specific [place] 1.010 Urine Protein Negative Urine Glucose (UA) Negative Urine Ketones Negative Urine Blood Negative Urine Nitrite Negative Urine Bilirubin Negative Urine Urobilinogen 0.2 Ur Leukocyte Esterase Negative Acetone, Qual Negative Blood Type A NEGATIVE Antibody Screen 05/22/19 05/22/19 05/22/19 11:15 11:15 11:15 PT with INR 11.90 INR 1.01 PTT (Actin FS) VBG pH 7.37 POC VBG pCO2 48.3 POC VBG pO2 < 49.0 H VBG HCO3 26.9 VBG O2 Sat (Fred) 57.3 L VBG Base Excess 1.5 Sodium Potassium Chloride Carbon Dioxide Anion Gap BUN Creatinine Est GFR (CKD-EPI)AfAm Est GFR (CKD-EPI)NonAf Random Glucose Lactic Acid Calcium Total Bilirubin AST ALT Alkaline Phosphatase Troponin I Total Protein Albumin Urine Color Urine Appearance Urine pH Ur Specific [place] Urine Protein Urine Glucose (UA) Urine Ketones Urine Blood Urine Nitrite Urine Bilirubin Urine Urobilinogen Ur Leukocyte Esterase Acetone, Qual Blood Type A NEGATIVE Antibody Screen Negative 05/22/19 05/22/19 05/22/19 11:15 11:15 11:15 PT with INR INR PTT (Actin FS) 33.0 VBG pH POC VBG pCO2 POC VBG pO2 VBG HCO3 VBG O2 Sat (Fred) VBG Base Excess Sodium 138 Potassium 4.2 Chloride 104 Carbon Dioxide 29 Anion Gap 5 L BUN 18.2 H Creatinine 0.8 Est GFR (CKD-EPI)AfAm 128.60 Est GFR (CKD-EPI)NonAf 110.96 Random Glucose 158 H Lactic Acid 1.0 Calcium 9.5 Total Bilirubin 0.5 AST 10 L ALT 18 Alkaline Phosphatase 102 Troponin I Total Protein 7.4 Albumin 3.9 Urine Color Urine Appearance Urine pH Ur Specific [place] Urine Protein Urine Glucose (UA) Urine Ketones Urine Blood Urine Nitrite Urine Bilirubin Urine Urobilinogen Ur Leukocyte Esterase Acetone, Qual Blood Type Antibody Screen 05/22/19 11:15 PT with INR INR PTT (Actin FS) VBG pH POC VBG pCO2 POC VBG pO2 VBG HCO3 VBG O2 Sat (Fred) VBG Base Excess Sodium Potassium Chloride Carbon Dioxide Anion Gap BUN Creatinine Est GFR (CKD-EPI)AfAm Est GFR (CKD-EPI)NonAf Random Glucose Lactic Acid Calcium Total Bilirubin AST ALT Alkaline Phosphatase Troponin I 0.00 Total Protein Albumin Urine Color Urine Appearance Urine pH Ur Specific [place] Urine Protein Urine Glucose (UA) Urine Ketones Urine Blood Urine Nitrite Urine Bilirubin Urine Urobilinogen Ur Leukocyte Esterase Acetone, Qual Blood Type Antibody Screen 05/22/19 11:15 RBC 4.32 MCV 84.8 MCHC 34.9 RDW 13.3 MPV 9.6 Neutrophils % 66.2 Lymphocytes % 26.1 Monocytes % 6.4 Eosinophils % 0.9 Basophils % 0.4 - RADIOLOGY Radiograph Interpretation: EXAM#: TYPE/EXAM: RESULT: [id number] RAD/CHEST X-RAY PORTABLE* Sepsis. Impression. No evidence of active pulmonary disease. Reported By: Darius Hi MD 05/22/19 10:33 - Medications Given in the ED: ED Medications Discontinued Medications Generic Name Dose Route Start Last Admin Trade Name Freq PRN Reason Stop Dose Admin Acetaminophen 1,000 mg 05/22/19 10:00 05/22/19 11:15 Ofirmev Injection - IVPB 05/22/19 10:01 Not Given ONCE ONE Sodium Chloride 1,000 mls @ 1,000 mls/hr 05/22/19 10:00 05/22/19 11:15 Normal Saline - IV 05/22/19 10:59 1,000 mls/hr ASDIR STA Administration
--- NOTE | 2019-05-22 19:13 | PN ---
Progress Note (short form) - Note Progress Note: Podiatry Brief Note: 43 year old diabetic male, (+) osteomyelitis left and right hallux on MRI from prior admission. [facility] with [facility] Plan for debridement and bone biopsy left great toe tomorrow morning in OR. NPO at midnight order placed. Will evaluate patient tomorrow. Erma Beckwith DPM
--- NOTE | 2019-05-22 19:27 | HP ---
Admitting History and Physical - Primary Care Physician PCP: Delta Steinberg - Admission History of Present Illness: -43 year old male, with a significant PMH of DM (noncompliant with medications) and osteomyelitis of the L and R great toes, who presents to the ED for admission for wound care. Patient notes his R great toe pain has progressively gotten better since his admission 10 days ago for osteomyelitis, but he now reports L great toe pain. Wound Care asks that no antibiotics are to be given, and the patient will have a biopsy tomorrow. - Past Medical History Endocrine: Yes: Diabetes Mellitus - Smoking History Smoking history: Never smoked Have you smoked in the past 12 months: No - Alcohol/Substance Use Hx Alcohol Use: No Home Medications - Allergies Allergies/Adverse Reactions: Allergies Allergy/AdvReac Type Severity Reaction Status Date / Time No Known Allergies Allergy Verified 05/22/19 09:47 - Home Medications Home Medications: Ambulatory Orders Sitagliptin Phosphate [Januvia] 100 mg PO BID 05/16/19 Physical Examination Vital Signs: Vital Signs Temperature 98.1 F 05/22/19 18:43 Pulse Rate 70 05/22/19 18:43 Respiratory Rate 18 05/22/19 18:43 Blood Pressure 123/72 05/22/19 18:43 O2 Sat by Pulse Oximetry (%) 100 05/22/19 18:43 Constitutional: Yes: No Distress HENT: Yes: Atraumatic Neck: Yes: Supple Cardiovascular: Yes: Regular Rate and Rhythm Respiratory: Yes: CTA Bilaterally Gastrointestinal: Yes: Normal Bowel Sounds Labs: CBC, BMP 05/22/19 11:15 05/22/19 11:15 Problem List - Problems (1) Osteomyelitis Assessment/Plan: L hallux for biopsy and debridement Code(s): M86.9 - OSTEOMYELITIS, UNSPECIFIED (2) Diabetic foot ulcer Assessment/Plan: monitor blood sugars insulin coverage Code(s): E11.621 - TYPE 2 DIABETES MELLITUS WITH FOOT ULCER; L97.509 - NON- PRESSURE CHRONIC ULCER OTH PRT UNSP FOOT W UNSP SEVERITY Qualifiers: Diabetic foot ulcer location: toe Diabetes mellitus type: type 2 Laterality: left Non-pressure ulcer stage: unspecified non-pressure ulcer stage Qualified Code(s): E11.621 - Type 2 diabetes mellitus with foot ulcer; L97.529 - Non-pressure chronic ulcer of other part of left foot with unspecified severity Assessment/Plan Laboratory Tests 05/22/19 05/22/19 05/22/19 11:15 11:15 11:15 WBC 6.3 RBC 4.32 Hgb 12.8 Hct 36.7 MCV 84.8 MCH 29.6 MCHC 34.9 RDW 13.3 Plt Count 228 MPV 9.6 Absolute Neuts (auto) 4.2 Neutrophils % 66.2 Lymphocytes % 26.1 Monocytes % 6.4 Eosinophils % 0.9 Basophils % 0.4 Nucleated RBC % 0 PT with INR INR PTT (Actin FS) 33.0 VBG pH POC VBG pCO2 POC VBG pO2 VBG HCO3 VBG O2 Sat (Fred) VBG Base Excess Sodium Potassium Chloride Carbon Dioxide Anion Gap BUN Creatinine Est GFR (CKD-EPI)AfAm Est GFR (CKD-EPI)NonAf Random Glucose Lactic Acid Calcium Total Bilirubin AST ALT Alkaline Phosphatase Troponin I 0.00 Total Protein Albumin Urine Color Urine Appearance Urine pH Ur Specific [place] Urine Protein Urine Glucose (UA) Urine Ketones Urine Blood Urine Nitrite Urine Bilirubin Urine Urobilinogen Ur Leukocyte Esterase Acetone, Qual Blood Type Antibody Screen 05/22/19 05/22/19 05/22/19 11:15 11:15 11:15 WBC RBC Hgb Hct MCV MCH MCHC RDW Plt Count MPV Absolute Neuts (auto) Neutrophils % Lymphocytes % Monocytes % Eosinophils % Basophils % Nucleated RBC % PT with INR 11.90 INR 1.01 PTT (Actin FS) VBG pH POC VBG pCO2 POC VBG pO2 VBG HCO3 VBG O2 Sat (Fred) VBG Base Excess Sodium 138 Potassium 4.2 Chloride 104 Carbon Dioxide 29 Anion Gap 5 L BUN 18.2 H Creatinine 0.8 Est GFR (CKD-EPI)AfAm 128.60 Est GFR (CKD-EPI)NonAf 110.96 Random Glucose 158 H Lactic Acid 1.0 Calcium 9.5 Total Bilirubin 0.5 AST 10 L ALT 18 Alkaline Phosphatase 102 Troponin I Total Protein 7.4 Albumin 3.9 Urine Color Urine Appearance Urine pH Ur Specific [place] Urine Protein Urine Glucose (UA) Urine Ketones Urine Blood Urine Nitrite Urine Bilirubin Urine Urobilinogen Ur Leukocyte Esterase Acetone, Qual Blood Type Antibody Screen 05/22/19 05/22/19 05/22/19 11:15 11:15 11:15 WBC RBC Hgb Hct MCV MCH MCHC RDW Plt Count MPV Absolute Neuts (auto) Neutrophils % Lymphocytes % Monocytes % Eosinophils % Basophils % Nucleated RBC % PT with INR INR PTT (Actin FS) VBG pH 7.37 POC VBG pCO2 48.3 POC VBG pO2 < 49.0 H VBG HCO3 26.9 VBG O2 Sat (Fred) 57.3 L VBG Base Excess 1.5 Sodium Potassium Chloride Carbon Dioxide Anion Gap BUN Creatinine Est GFR (CKD-EPI)AfAm Est GFR (CKD-EPI)NonAf Random Glucose Lactic Acid Calcium Total Bilirubin AST ALT Alkaline Phosphatase Troponin I Total Protein Albumin Urine Color Urine Appearance Urine pH Ur Specific [place] Urine Protein Urine Glucose (UA) Urine Ketones Urine Blood Urine Nitrite Urine Bilirubin Urine Urobilinogen Ur Leukocyte Esterase Acetone, Qual Negative Blood Type A NEGATIVE Antibody Screen Negative 05/22/19 05/22/19 13:30 13:50 WBC RBC Hgb Hct MCV MCH MCHC RDW Plt Count MPV Absolute Neuts (auto) Neutrophils % Lymphocytes % Monocytes % Eosinophils % Basophils % Nucleated RBC % PT with INR INR PTT (Actin FS) VBG pH POC VBG pCO2 POC VBG pO2 VBG HCO3 VBG O2 Sat (Fred) VBG Base Excess Sodium Potassium Chloride Carbon Dioxide Anion Gap BUN Creatinine Est GFR (CKD-EPI)AfAm Est GFR (CKD-EPI)NonAf Random Glucose Lactic Acid Calcium Total Bilirubin AST ALT Alkaline Phosphatase Troponin I Total Protein Albumin Urine Color Yellow Urine Appearance Clear Urine pH 5.5 Ur Specific [place] 1.010 Urine Protein Negative Urine Glucose (UA) Negative Urine Ketones Negative Urine Blood Negative Urine Nitrite Negative Urine Bilirubin Negative Urine Urobilinogen 0.2 Ur Leukocyte Esterase Negative Acetone, Qual Blood Type A NEGATIVE Antibody Screen Active Medications Generic Name Dose Route Start Last Admin Trade Name Freq PRN Reason Stop Dose Admin Heparin Sodium (Porcine) 5,000 unit 05/23/19 22:00 05/24/19 10:49 Heparin - SQ 5,000 unit BID JUDITH Administration Ceftriaxone Sodium 2 gm/ 100 mls @ 200 mls/hr 05/24/19 10:00 05/24/19 12:29 Dextrose IVPB 200 mls/hr DAILY JUDITH Administration Protocol Insulin Aspart 1 vial 05/24/19 16:30 05/24/19 17:11 Novolog Vial Sliding Scale - SQ Not Given TIDAC JUDITH Protocol Insulin Aspart 1 vial 05/24/19 22:00 Novolog Vial Sliding Scale - SQ HS JUDITH Protocol Oxycodone HCl 5 mg 05/23/19 12:49 05/23/19 18:03 Roxicodone - PO 5 mg Q4H PRN Administration PAIN LEVEL 1-5 Sitagliptin Phosphate 100 mg 05/24/19 07:00 05/24/19 06:08 Januvia - PO 100 mg DAILY@0700 JUDITH Administration
[2019-05-22 21:14] VITALS: BMI 31.1
[2019-05-22] MEDS: HEPARIN NA (PORCINE) 5,000 UNITS/ML 1ML VIAL SQ SCH (21:32)
[2019-05-23 07:33] LABS: BASO % 0.3 % (0-2.0); EOS % 1.3 % (0-4.5); HEMOGLOBIN 12.1 GM/dL (11.7-16.9); LYMPH % 22.4 % (8-40); MCH 29.6 pg (25.7-33.7); MCHC 34.7 g/dl (32.0-35.9); MEAN CELL VOLUME 85.4 fl (80-96); MEAN PLT VOLUME 9.5 fl (7.5-11.1); MONO % 5.4 % (3.8-10.2); NEUT % 70.6 % (42.8-82.8); PLATELET COUNT 210 K/MM3 (134-434); RDW 13.5 % (11.9-15.9); WHITE BLOOD COUNT 7.1 K/mm3 (4.0-10.0)
[2019-05-23 08:15] LABS: ALBUMIN 3.4 g/dl (3.4-5.0); BLOOD UREA NITROGEN 14.4 mg/dL (7-18); CALCIUM 8.9 mg/dL (8.5-10.1); CREATININE 0.8 mg/dL (0.55-1.3); POTASSIUM 4.3 mmol/L (3.5-5.1); TOT PROT 6.7 g/dl (6.4-8.2)
[2019-05-23] MEDS ORDERED: PROPOFOL 20 ML ONE (10:11)
[2019-05-23] MEDS ORDERED: MIDAZOLAM HCL 2 MG/2 ML SINGLE DOSE VIAL ONE (10:11)
[2019-05-23] MEDS: HEPARIN NA (PORCINE) 5,000 UNITS/ML 1ML VIAL SQ SCH ×2 (10:24→21:39)
[2019-05-23] MEDS ORDERED: LIDOCAINE HCL 2% (20ML MULTI-DOSE VIAL) NR ONE (10:54)
--- NOTE | 2019-05-23 11:42 | CON.ID ---
Consult Consult Specialty:: infectious diseases Referred by:: Reason for Consultation:: osteo of the foot - History of Present Illness Chief Complaint: non healing wound of the leg History of Present Illness: 43 year old male, with a significant PMH of DM (noncompliant with medications) and osteomyelitis of the L and R great toes, who presents to the ED for admission for wound care. Patient notes his R great toe pain has progressively gotten better since his admission 10 days ago for osteomyelitis, but he now reports L great toe pain. Wound Care asks that no antibiotics are to be given, and the patient will have a biopsy tomorrow. patient was seen by podiatry and the plan is to take for bone biopsy - History Source History Provided By: Patient, Medical Record Limitations to Obtaining History: Language Barrier - Past Medical History Endocrine: Yes: Diabetes Mellitus - Alcohol/Substance Use Hx Alcohol Use: No - Smoking History Smoking history: Never smoked Have you smoked in the past 12 months: No Home Medications - Allergies Allergies/Adverse Reactions: Allergies Allergy/AdvReac Type Severity Reaction Status Date / Time No Known Allergies Allergy Verified 05/22/19 09:47 - Home Medications Home Medications: Ambulatory Orders Sitagliptin Phosphate [Januvia] 100 mg PO BID 05/16/19 Review of Systems - Review of Systems Constitutional: reports: No Symptoms Eyes: reports: No Symptoms HENT: reports: No Symptoms Neck: reports: No Symptoms Cardiovascular: reports: No Symptoms Respiratory: reports: No Symptoms Gastrointestinal: reports: No Symptoms Genitourinary: reports: No Symptoms Musculoskeletal: reports: Muscle Pain Integumentary: reports: Change in Color, Wound Neurological: reports: No Symptoms Endocrine: reports: No Symptoms Hematology/Lymphatic: reports: No Symptoms Psychiatric: reports: No Symptoms Physical Exam Vital Signs: Vital Signs Temperature 98.4 F 05/23/19 05:00 Pulse Rate 71 05/23/19 05:00 Respiratory Rate 18 05/23/19 06:00 Blood Pressure 107/64 05/23/19 05:00 O2 Sat by Pulse Oximetry (%) 100 05/23/19 06:00 Constitutional: Yes: Well Nourished, No Distress, Calm HENT: Yes: Atraumatic Neck: Yes: Supple, Trachea Midline Cardiovascular: Yes: Regular Rate and Rhythm Respiratory: Yes: Regular, CTA Bilaterally Gastrointestinal: Yes: Normal Bowel Sounds, Soft Musculoskeletal: Yes: WNL Extremities: Yes: Other (left foot wound/bone) Wound/Incision: Yes: Dressing Dry and Intact Neurological: Yes: Alert, Oriented Psychiatric: Yes: Alert, Oriented Labs: CBC, BMP 05/23/19 06:30 05/23/19 06:30 Imaging - Results Chest X-ray: Report Reviewed, Image Reviewed X-ray: Report Reviewed, Image Reviewed Assessment/Plan Problem List - Problems (1) Osteomyelitis Code(s): M86.9 - OSTEOMYELITIS, UNSPECIFIED (2) Diabetic foot ulcer Code(s): E11.621 - TYPE 2 DIABETES MELLITUS WITH FOOT ULCER; L97.509 - NON- PRESSURE CHRONIC ULCER OTH PRT UNSP FOOT W UNSP SEVERITY Qualifiers: Diabetic foot ulcer location: toe Diabetes mellitus type: type 2 Laterality: left Non-pressure ulcer stage: unspecified non-pressure ulcer stage Qualified Code(s): E11.621 - Type 2 diabetes mellitus with foot ulcer; L97.529 - Non-pressure chronic ulcer of other part of left foot with unspecified severity (3) Diabetes Code(s): E11.9 - TYPE 2 DIABETES MELLITUS WITHOUT COMPLICATIONS 4 wound infection plan await for bone biopsy once we have the biopsy then we will start on abx patient will need it for 4-6 weeks will d/w the podiatry
[2019-05-23] MEDS ORDERED: ceFAZolin SODIUM 1 GM VIAL ONE (12:21)
[2019-05-23] MEDS ORDERED: ceFAZolin SODIUM 1 GM VIAL IVPB ONE (12:23)
[2019-05-23] MEDS ORDERED: LIDOCAINE HCL 2% (50ML VIAL) INF ONE (12:30)
--- NOTE | 2019-05-23 15:26 | OP ---
Operative Note - Note: Operative Date: 05/23/19 Pre-Operative Diagnosis: left hallux diabetic ulcer with osteomyelitis Operation: debridement of left hallux diabetic ulcer with bone biopsy Post-Operative Diagnosis: Same as Pre-op Surgeon: Reilly Beckwith Anesthesia: Local, MAC Specimens Removed: bone left hallux Estimated Blood Loss (mls): 20 Instrument used (Debridements only): #15 blade scalpel and forceps Operative Report Dictated: Yes
--- NOTE | 2019-05-23 16:17 | EKG ---
Test Reason : Blood Pressure : / mmHG Vent. Rate : 068 BPM Atrial Rate : 068 BPM P-R Int : 136 ms QRS Dur : 088 ms QT Int : 370 ms P-R-T Axes : 027 009 009 degrees QTc Int : 393 ms POOR DATA QUALITY, INTERPRETATION MAY BE ADVERSELY AFFECTED NORMAL SINUS RHYTHM NORMAL ECG WHEN COMPARED WITH ECG OF 10-MAY-2019 19:42, NO SIGNIFICANT CHANGE WAS FOUND Confirmed by MD MARYSOL, HATTIE ([id number]) on 05/23/2019 4:17:16 PM Referred By: Confirmed By:HATTIE GREGG MD
--- NOTE | 2019-05-23 16:57 | PN ---
Progress Note, Physician - Current Medication List Current Medications: Active Medications Heparin Sodium (Porcine) (Heparin -) 5,000 unit SQ BID [facility] Oxycodone HCl (Roxicodone -) 5 mg PO Q4H PRN PRN Reason: PAIN LEVEL 1-5 Sitagliptin Phosphate (Januvia -) 100 mg PO DAILY@0700 [facility] - Objective Vital Signs: Vital Signs Temperature 98.7 F 05/23/19 14:20 Pulse Rate 82 05/23/19 14:20 Respiratory Rate 20 05/23/19 14:20 Blood Pressure 116/68 05/23/19 14:20 O2 Sat by Pulse Oximetry (%) 96 05/23/19 13:40 Constitutional: Yes: No Distress HENT: Yes: Atraumatic Neck: Yes: Supple Cardiovascular: Yes: Regular Rate and Rhythm Respiratory: Yes: CTA Bilaterally Gastrointestinal: Yes: Normal Bowel Sounds Extremities: Yes: Other (L foot in dressing) Neurological: Yes: Alert, Oriented Labs: CBC, BMP 05/23/19 06:30 05/23/19 06:30 INR, PTT INR 1.01 (0.83-1.09) 05/22/19 11:15 Problem List - Problems (1) Osteomyelitis Assessment/Plan: L hallux s/p biopsy and debridement Code(s): M86.9 - OSTEOMYELITIS, UNSPECIFIED (2) Diabetic foot ulcer Assessment/Plan: monitor blood sugars insulin coverage Code(s): E11.621 - TYPE 2 DIABETES MELLITUS WITH FOOT ULCER; L97.509 - NON- PRESSURE CHRONIC ULCER OTH PRT UNSP FOOT W UNSP SEVERITY Qualifiers: Diabetic foot ulcer location: toe Diabetes mellitus type: type 2 Laterality: left Non-pressure ulcer stage: unspecified non-pressure ulcer stage Qualified Code(s): E11.621 - Type 2 diabetes mellitus with foot ulcer; L97.529 - Non-pressure chronic ulcer of other part of left foot with unspecified severity (3) Diabetes Code(s): E11.9 - TYPE 2 DIABETES MELLITUS WITHOUT COMPLICATIONS
[2019-05-23] MEDS: oxyCODONE HCL 5 MG TABLET PO PRN (18:03)
--- NOTE | 2019-05-23 23:45 | OP ---
DATE OF OPERATION: 05/23/2019 PREOPERATIVE DIAGNOSIS: Left hallux diabetic ulcer with osteomyelitis. POSTOPERATIVE DIAGNOSIS: Left hallux diabetic ulcer with osteomyelitis. PROCEDURE: Left hallux debridement of diabetic ulcer with bone biopsy. SURGEON: Reilly Beckwith DPM DOLL DRESSER: None. HEMOSTASIS: Surgical dissection. ANESTHESIA: IV sedation with local. ESTIMATED BLOOD LOSS: 20 mL. PATHOLOGY: Bone of left great toe. DESCRIPTION OF PROCEDURE: Patient was brought to the operating room and placed on the operating table in the supine position. Following induction of IV sedation, local anesthesia was achieved utilizing 10 mL of 2% lidocaine plain. The left foot was scrubbed, prepped, and draped in the usual sterile fashion. Attention was directed to the left great toe where a plantar IPJ diabetic ulcer was visualized and appreciated. I began by performing a sharp excisional debridement of the left hallux diabetic ulcer to the level of the skin, subcutaneous tissue, and muscle. All devitalized fibrotic tissue was removed until there was healthy granular and viable tissue noted. Of note, the diabetic ulcer probed deep to the capsule and bone of the distal phalanx. Next, I performed a 1.5-cm linear longitudinal incision at the medial aspect of the great toe, superior to the diabetic ulcer. The incision was deepened using sharp and blunt dissection, taking care to retract vital neural and vascular structures. All bleeders were cauterized and ligated as needed. Next, a capsular incision was made overlying the bone, which abutted the diabetic ulcer. A rongeur was used through the incision to resect a portion of the bone. The bone was sectioned for both bone biopsy and bone culture. A wound culture was obtained as well. The surgical site was copiously irrigated with sterile saline. The incision was coapted and maintained using 3-0 nylon in a simple interrupted suture fashion. Following conclusion of the procedure, the surgical site was covered with Xeroform and a sterile compressive dressing was applied to the left foot consisting of sterile gauze, Azul, Kerlix, and an Jerry wrap. The patient tolerated the procedure and anesthesia well without complication. He was transferred from the operating room to the recovery unit with vital signs stable, neurovascular structures intact to the left foot. JAS [id number] cc: [facility]
--- NOTE | 2019-05-24 09:41 | PN ---
Progress Note, Physician History of Present Illness: patient stable post biopsy now awaiting for surgical pathology - Current Medication List Current Medications: Active Medications Heparin Sodium (Porcine) (Heparin -) 5,000 unit SQ BID [facility] Last Admin: 05/23/19 21:39 Dose: 5,000 unit Oxycodone HCl (Roxicodone -) 5 mg PO Q4H PRN PRN Reason: PAIN LEVEL 1-5 Last Admin: 05/23/19 18:03 Dose: 5 mg Sitagliptin Phosphate (Januvia -) 100 mg PO DAILY@0700 [facility] Last Admin: 05/24/19 06:08 Dose: 100 mg - Objective Vital Signs: Vital Signs Temperature 98 F 05/24/19 05:57 Pulse Rate 70 05/24/19 05:57 Respiratory Rate 20 05/24/19 05:57 Blood Pressure 118/70 05/24/19 05:57 O2 Sat by Pulse Oximetry (%) 97 05/23/19 21:00 Constitutional: Yes: No Distress, Calm Cardiovascular: Yes: Regular Rate and Rhythm Respiratory: Yes: Regular, CTA Bilaterally Gastrointestinal: Yes: Normal Bowel Sounds, Soft Musculoskeletal: Yes: WNL Extremities: Yes: Other Wound/Incision: Yes: Dressing Dry and Intact Neurological: Yes: Alert, Oriented Psychiatric: Yes: Alert, Oriented Labs: CBC, BMP 05/23/19 06:30 05/23/19 06:30 INR, PTT INR 1.01 (0.83-1.09) 05/22/19 11:15 Assessment/Plan Problem List - Problems (1) Osteomyelitis Code(s): M86.9 - OSTEOMYELITIS, UNSPECIFIED (2) Diabetic foot ulcer Code(s): E11.621 - TYPE 2 DIABETES MELLITUS WITH FOOT ULCER; L97.509 - NON- PRESSURE CHRONIC ULCER OTH PRT UNSP FOOT W UNSP SEVERITY Qualifiers: Diabetic foot ulcer location: toe Diabetes mellitus type: type 2 Laterality: left Non-pressure ulcer stage: unspecified non-pressure ulcer stage Qualified Code(s): E11.621 - Type 2 diabetes mellitus with foot ulcer; L97.529 - Non-pressure chronic ulcer of other part of left foot with unspecified severity (3) Diabetes Code(s): E11.9 - TYPE 2 DIABETES MELLITUS WITHOUT COMPLICATIONS patient s/p biopsy and debridement plan continue abx wound care await for surgical patho will d/w podiatry team final plan will depend on that
[2019-05-24] MEDS ORDERED: DEXTROSE 5%-WATER 200 ML IVPB ONE (10:47)
[2019-05-24] MEDS: HEPARIN NA (PORCINE) 5,000 UNITS/ML 1ML VIAL SQ SCH ×2 (10:49→21:21)
--- NOTE | 2019-05-24 11:46 | PN ---
Progress Note, Physician - Current Medication List Current Medications: Active Medications Heparin Sodium (Porcine) (Heparin -) 5,000 unit SQ BID [facility] Last Admin: 05/24/19 10:49 Dose: 5,000 unit Ceftriaxone Sodium 2 gm/ (Dextrose) 100 mls @ 200 mls/hr IVPB DAILY [facility]; Protocol Oxycodone HCl (Roxicodone -) 5 mg PO Q4H PRN PRN Reason: PAIN LEVEL 1-5 Last Admin: 05/23/19 18:03 Dose: 5 mg Sitagliptin Phosphate (Januvia -) 100 mg PO DAILY@0700 [facility] Last Admin: 05/24/19 06:08 Dose: 100 mg - Objective Vital Signs: Vital Signs Temperature 97.8 F 05/24/19 10:00 Pulse Rate 70 05/24/19 10:00 Respiratory Rate 18 05/24/19 10:00 Blood Pressure 123/78 05/24/19 10:00 O2 Sat by Pulse Oximetry (%) 97 05/24/19 09:00 Constitutional: Yes: No Distress HENT: Yes: Atraumatic Neck: Yes: Supple Cardiovascular: Yes: Regular Rate and Rhythm Respiratory: Yes: CTA Bilaterally Gastrointestinal: Yes: Normal Bowel Sounds Extremities: Yes: Other (left foot in dressing) Labs: CBC, BMP 05/23/19 06:30 05/23/19 06:30 INR, PTT INR 1.01 (0.83-1.09) 05/22/19 11:15 Problem List - Problems (1) Osteomyelitis Assessment/Plan: L hallux s/p biopsy and debridement abx per id Code(s): M86.9 - OSTEOMYELITIS, UNSPECIFIED (2) Diabetic foot ulcer Assessment/Plan: monitor blood sugars insulin coverage Code(s): E11.621 - TYPE 2 DIABETES MELLITUS WITH FOOT ULCER; L97.509 - NON- PRESSURE CHRONIC ULCER OTH PRT UNSP FOOT W UNSP SEVERITY Qualifiers: Diabetic foot ulcer location: toe Diabetes mellitus type: type 2 Laterality: left Non-pressure ulcer stage: unspecified non-pressure ulcer stage Qualified Code(s): E11.621 - Type 2 diabetes mellitus with foot ulcer; L97.529 - Non-pressure chronic ulcer of other part of left foot with unspecified severity (3) Diabetes Assessment/Plan: on meds bgms insulin coverage, endo consult Code(s): E11.9 - TYPE 2 DIABETES MELLITUS WITHOUT COMPLICATIONS
[2019-05-24] MEDS: CEFTRIAXONE 2 GM in DEXTROSE 5%-WATER 100 ML IVPB SCH (12:29)
--- NOTE | 2019-05-24 12:30 | PN ---
Progress Note (short form) - Note Progress Note: Podiatry F/U: Seen/evaluated at bedside NAD. Pain controlled, denies F/V/N/c/SOB/CP. Afebrile. S/p left great toe debridement with bone biopsy POD#1. REN: L foot: pedal pulses palpable, TG wnl, CFT brisk to toes. There is a plantar hallux diabetic ulcer, granular base, minimal drainage, no purulence, no streaking cellulitis. Sutures well coapted no dehiscence noted. Mild tenderness to palpation. OR cx: pending Imp: 43 year old diabetic male s/p left great toe debridement and bone biopsy POD#1 1. IV abx per infectious disease 2. DSD L foot 3. Partial WB L foot with surgical shoe 4. F/u OR cultures 5. Will follow Erma Beckwith DPM
--- NOTE | 2019-05-24 13:54 | PATH ---
Surgical Pathology Report Patient Name: AURORA MAXWELL Med. Rec. #: [id number] /Age/Gender: 1975 (Age: 43) / M Account: [id number] Location: [facility] MED/SURG Taken: 05/23/2019 Received: 05/23/2019 Reported: 05/24/2019 Physicians: Delta Steinberg M.D. Specimen(s) Received LEFT GREAT TOE BONE BIOPSY Clinical History Left diabetic foot ulcer, osteomyelitis Final Diagnosis BONE, GREAT TOE, LEFT, BIOPSY: BONE WITHOUT SIGNIFICANT PATHOLOGIC FINDINGS. NO ACUTE OSTEOMYELITIS IDENTIFIED. Electronically Signed Teagan Bey M.D. Gross Description Received fresh labeled "left great toe bone biopsy," is a 1.0 x 1.0 x 0.2 cm aggregate of jack-red bone fragments. The specimen is submitted in toto in one cassette, following decalcification. /05/23/2019 saudi/05/23/2019
--- NOTE | 2019-05-24 14:07 | CONSULT ---
Consult Consult Specialty:: Endocrinology Referred by:: Dr Steinberg Reason for Consultation:: Hyperglycemia - History of Present Illness Chief Complaint: Left big toe infection History of Present Illness: This is a 43 year old male, with h/o T2DM for 10 years, never on Insulin ( noncompliant with medications) and osteomyelitis of the L and R great toes, who presents to the ED for admission for wound care. Patient notes his R great toe pain has progressively gotten better since his admission 10 days ago for osteomyelitis, but he now reports L great toe pain. Pt referred for management of hyperglycemia. According to pt, his blood sugar at home ranges from 180 to 270. No hypos. No piolyuria, polydipsia or nocturia. Has occ blurred vision. Hasn't seen Ophthalmology in many years. No paresthesia of feet. Family h/o DM in father. - History Source History Provided By: Patient, Medical Record - Past Medical History Endocrine: Yes: Diabetes Mellitus - Alcohol/Substance Use Hx Alcohol Use: No - Smoking History Smoking history: Never smoked Have you smoked in the past 12 months: No Home Medications - Allergies Allergies/Adverse Reactions: Allergies Allergy/AdvReac Type Severity Reaction Status Date / Time No Known Allergies Allergy Verified 05/22/19 09:47 - Home Medications Home Medications: Ambulatory Orders Sitagliptin Phosphate [Januvia] 100 mg PO BID 05/16/19 Family Disease History - Family Disease History Family Disease History: Diabetes: Father Review of Systems - Review of Systems Constitutional: reports: No Symptoms Eyes: reports: No Symptoms HENT: reports: No Symptoms Neck: reports: No Symptoms Cardiovascular: reports: No Symptoms Respiratory: reports: No Symptoms Gastrointestinal: reports: No Symptoms Genitourinary: reports: No Symptoms Musculoskeletal: reports: No Symptoms Integumentary: reports: No Symptoms Endocrine: reports: No Symptoms Physical Exam Vital Signs: Vital Signs Temperature 97.8 F 05/24/19 10:00 Pulse Rate 70 05/24/19 10:00 Respiratory Rate 18 05/24/19 10:00 Blood Pressure 123/78 05/24/19 10:00 O2 Sat by Pulse Oximetry (%) 97 05/24/19 09:00 Constitutional: Yes: No Distress, Calm Eyes: Yes: Conjunctiva Clear, EOM Intact HENT: Yes: Atraumatic, Normocephalic Neck: Yes: Supple, Trachea Midline Cardiovascular: Yes: Regular Rate and Rhythm Respiratory: Yes: Regular, CTA Bilaterally Gastrointestinal: Yes: Normal Bowel Sounds Musculoskeletal: Yes: WNL Extremities: Yes: Other (left foot dressing. Rt big toe healed scar.) Edema: No Labs: CBC, BMP 05/23/19 06:30 05/23/19 06:30 Assessment/Plan AP: Left big toe infection/Osteo: S/P debridement and biopsy T2DM with hyperglycemia BGM QACHS and 3 AM Nutrition consult Januvia 100mg QD Novolog SS coverage FS 417 today probably sec to Abx with Dextrose Please mix Abx with NS if possible Will F/U
[2019-05-24] MEDS ORDERED: Insulin (LOG) Aspart 100 UNITS/ML VIAL SQ ONE (14:14)
[2019-05-24] MEDS: INSULIN SLIDING SCALE (NOVOLOG) 1 VIAL SQ SCH ×2 (17:11→21:20)
[2019-05-24] MEDS: oxyCODONE HCL 5 MG TABLET PO PRN (20:12)
[2019-05-25] MEDS: INSULIN SLIDING SCALE (NOVOLOG) 1 VIAL SQ SCH ×4 (06:24→23:52)
[2019-05-25] MEDS ORDERED: DEXTROSE 5%-WATER 100 ML IVPB ONE (09:17)
[2019-05-25] MEDS: CEFTRIAXONE 2 GM in DEXTROSE 5%-WATER 100 ML IVPB SCH (10:04)
[2019-05-25] MEDS: HEPARIN NA (PORCINE) 5,000 UNITS/ML 1ML VIAL SQ SCH ×2 (10:04→23:52)
--- NOTE | 2019-05-25 12:34 | PN ---
Progress Note (short form) - Note Progress Note: Denies any complaints Blood sugar acceptable Vital Signs Period Temp Pulse Resp BP Sys/Ding Pulse Ox Last 24 Hr 98.1 F-99.1 F 70-81 18-18 117-128/68-73 97 PE: AOx3 Neck: Supple, No JVD HEENT: EOMI Lungs: CTA CVS: S1S2 Abd: Benign EXt: Left foot dressing Neuro: No focal deficit CMP Sodium 140 mmol/L (136-145) 05/23/19 06:30 Potassium 4.3 mmol/L (3.5-5.1) 05/23/19 06:30 Chloride 104 mmol/L (98-107) 05/23/19 06:30 Carbon Dioxide 28 mmol/L (21-32) 05/23/19 06:30 Anion Gap 8 MMOL/L (8-16) 05/23/19 06:30 BUN 14.4 mg/dL (7-18) 05/23/19 06:30 Creatinine 0.8 mg/dL (0.55-1.3) 05/23/19 06:30 Est GFR (CKD-EPI)AfAm 128.60 05/23/19 06:30 Est GFR (CKD-EPI)NonAf 110.96 05/23/19 06:30 POC Glucometer 134 UNITS (80-120) 05/25/19 12:00 Random Glucose 168 mg/dL (74-106) H 05/23/19 06:30 Lactic Acid 1.0 mmol/L (0.4-2.0) 05/22/19 11:15 Calcium 8.9 mg/dL (8.5-10.1) 05/23/19 06:30 Total Bilirubin 1.0 mg/dL (0.2-1) 05/23/19 06:30 AST 12 U/L (15-37) L 05/23/19 06:30 ALT 17 U/L (13-61) 05/23/19 06:30 Alkaline Phosphatase 92 U/L (45-117) 05/23/19 06:30 Troponin I 0.00 ng/ml (0.00-0.05) 05/22/19 11:15 Total Protein 6.7 g/dl (6.4-8.2) 05/23/19 06:30 Albumin 3.4 g/dl (3.4-5.0) 05/23/19 06:30 Current Medications Generic Name Dose Route Start Last Admin Trade Name Freq PRN Reason Stop Dose Admin Heparin Sodium (Porcine) 5,000 unit 05/23/19 22:00 05/25/19 10:04 Heparin - SQ 5,000 unit BID [facility] Administration Ceftriaxone Sodium 2 gm/ 100 mls @ 200 mls/hr 05/24/19 10:00 05/25/19 10:04 Dextrose IVPB 200 mls/hr DAILY [facility] Administration Protocol Insulin Aspart 1 vial 05/24/19 16:30 05/25/19 06:24 Novolog Vial Sliding Scale - SQ Not Given [facility] Protocol Insulin Aspart 1 vial 05/24/19 22:00 05/24/19 21:20 Novolog Vial Sliding Scale - SQ Not Given [facility] Protocol Oxycodone HCl 5 mg 05/23/19 12:49 05/24/19 20:12 Roxicodone - PO 5 mg Q4H PRN Administration PAIN LEVEL 1-5 Sitagliptin Phosphate 100 mg 05/24/19 07:00 05/25/19 06:24 Januvia - PO 100 mg DAILY@0700 [facility] Administration AP: Left big toe infection/Osteo: S/P debridement and biopsy T2DM with hyperglycemia BGM QACHS Nutrition consult Januvia 100mg QD Novolog SS coverage FS 417 yesterday probably sec to Abx with Dextrose Please mix Abx with NS if possible Will F/U
--- NOTE | 2019-05-25 13:49 | PN ---
Progress Note, Physician History of Present Illness: stable no new issues cx results noted - Current Medication List Current Medications: Active Medications Heparin Sodium (Porcine) (Heparin -) 5,000 unit SQ BID [facility] Last Admin: 05/25/19 10:04 Dose: 5,000 unit Insulin Aspart (Novolog Vial Sliding Scale -) 1 vial SQ TIDAC [facility]; Protocol Last Admin: 05/25/19 12:47 Dose: Not Given Insulin Aspart (Novolog Vial Sliding Scale -) 1 vial SQ HS [facility]; Protocol Last Admin: 05/24/19 21:20 Dose: Not Given Oxycodone HCl (Roxicodone -) 5 mg PO Q4H PRN PRN Reason: PAIN LEVEL 1-5 Last Admin: 05/24/19 20:12 Dose: 5 mg Sitagliptin Phosphate (Januvia -) 100 mg PO DAILY@0700 [facility] Last Admin: 05/25/19 06:24 Dose: 100 mg - Objective Vital Signs: Vital Signs Temperature 98.1 F 05/25/19 05:59 Pulse Rate 70 05/25/19 05:59 Respiratory Rate 18 05/25/19 05:59 Blood Pressure 128/71 05/25/19 05:59 O2 Sat by Pulse Oximetry (%) 97 05/24/19 21:00 Constitutional: Yes: No Distress, Calm Cardiovascular: Yes: S1, S2 Gastrointestinal: Yes: Normal Bowel Sounds, Soft Musculoskeletal: Yes: WNL Extremities: Yes: Other Wound/Incision: Yes: Dressing Dry and Intact Neurological: Yes: Alert, Oriented Psychiatric: Yes: Alert, Oriented Labs: CBC, BMP 05/23/19 06:30 05/23/19 06:30 INR, PTT INR 1.01 (0.83-1.09) 05/22/19 11:15 Assessment/Plan Problem List - Problems (1) Osteomyelitis Code(s): M86.9 - OSTEOMYELITIS, UNSPECIFIED (2) Diabetic foot ulcer Code(s): E11.621 - TYPE 2 DIABETES MELLITUS WITH FOOT ULCER; L97.509 - NON- PRESSURE CHRONIC ULCER OTH PRT UNSP FOOT W UNSP SEVERITY Qualifiers: Diabetic foot ulcer location: toe Diabetes mellitus type: type 2 Laterality: left Non-pressure ulcer stage: unspecified non-pressure ulcer stage Qualified Code(s): E11.621 - Type 2 diabetes mellitus with foot ulcer; L97.529 - Non-pressure chronic ulcer of other part of left foot with unspecified severity (3) Diabetes Code(s): E11.9 - TYPE 2 DIABETES MELLITUS WITHOUT COMPLICATIONS patient s/p biopsy and debridement plan will start patient on vanco awaiting for final patho and sensitivities wound care
[2019-05-25] MEDS ORDERED: PT OWN MED DRAWER 7, Y5N ONE (15:20)
[2019-05-25] MEDS: VANCOMYCIN HCL 1,500 MG in DEXTROSE 5%-WATER - 500 ML IVPB SCH (15:23)
--- NOTE | 2019-05-25 16:52 | PN ---
Progress Note, Physician History of Present Illness: doing well - Current Medication List Current Medications: Active Medications Heparin Sodium (Porcine) (Heparin -) 5,000 unit SQ BID [facility] Last Admin: 05/25/19 10:04 Dose: 5,000 unit Vancomycin HCl 1,500 mg/ (Dextrose) 500 mls @ 250 mls/hr IVPB Q24H [facility]; Protocol Last Admin: 05/25/19 15:23 Dose: 250 mls/hr Insulin Aspart (Novolog Vial Sliding Scale -) 1 vial SQ TIDAC [facility]; Protocol Last Admin: 05/25/19 12:47 Dose: Not Given Insulin Aspart (Novolog Vial Sliding Scale -) 1 vial SQ HS [facility]; Protocol Last Admin: 05/24/19 21:20 Dose: Not Given Oxycodone HCl (Roxicodone -) 5 mg PO Q4H PRN PRN Reason: PAIN LEVEL 1-5 Last Admin: 05/24/19 20:12 Dose: 5 mg Sitagliptin Phosphate (Januvia -) 100 mg PO DAILY@0700 [facility] Last Admin: 05/25/19 06:24 Dose: 100 mg - Objective Vital Signs: Vital Signs Temperature 97.9 F 05/25/19 15:00 Pulse Rate 78 05/25/19 15:00 Respiratory Rate 20 05/25/19 15:00 Blood Pressure 100/67 05/25/19 15:00 O2 Sat by Pulse Oximetry (%) 97 05/24/19 21:00 Constitutional: Yes: No Distress HENT: Yes: Atraumatic Neck: Yes: Supple Cardiovascular: Yes: Regular Rate and Rhythm Respiratory: Yes: CTA Bilaterally Gastrointestinal: Yes: Normal Bowel Sounds Extremities: Yes: Other (left foot in dressing) Neurological: Yes: Alert, Oriented Labs: CBC, BMP 05/23/19 06:30 05/23/19 06:30 INR, PTT INR 1.01 (0.83-1.09) 05/22/19 11:15 Problem List - Problems (1) Osteomyelitis Assessment/Plan: L hallux s/p biopsy and debridement abx per id Code(s): M86.9 - OSTEOMYELITIS, UNSPECIFIED (2) Diabetic foot ulcer Assessment/Plan: monitor blood sugars insulin coverage Code(s): E11.621 - TYPE 2 DIABETES MELLITUS WITH FOOT ULCER; L97.509 - NON- PRESSURE CHRONIC ULCER OTH PRT UNSP FOOT W UNSP SEVERITY Qualifiers: Diabetic foot ulcer location: toe Diabetes mellitus type: type 2 Laterality: left Non-pressure ulcer stage: unspecified non-pressure ulcer stage Qualified Code(s): E11.621 - Type 2 diabetes mellitus with foot ulcer; L97.529 - Non-pressure chronic ulcer of other part of left foot with unspecified severity (3) Diabetes Assessment/Plan: on meds bgms insulin coverage, endo consult Code(s): E11.9 - TYPE 2 DIABETES MELLITUS WITHOUT COMPLICATIONS
[2019-05-26] MEDS: INSULIN SLIDING SCALE (NOVOLOG) 1 VIAL SQ SCH ×4 (07:01→22:29)
--- NOTE | 2019-05-26 08:32 | PN ---
Progress Note, Physician History of Present Illness: stable doing well no complaints - Current Medication List Current Medications: Active Medications Heparin Sodium (Porcine) (Heparin -) 5,000 unit SQ BID [facility] Last Admin: 05/25/19 23:52 Dose: 5,000 unit Vancomycin HCl 1,500 mg/ (Dextrose) 500 mls @ 250 mls/hr IVPB Q24H [facility]; Protocol Last Admin: 05/25/19 15:23 Dose: 250 mls/hr Insulin Aspart (Novolog Vial Sliding Scale -) 1 vial SQ TIDAC [facility]; Protocol Last Admin: 05/26/19 07:01 Dose: Not Given Insulin Aspart (Novolog Vial Sliding Scale -) 1 vial SQ HS [facility]; Protocol Last Admin: 05/25/19 23:52 Dose: Not Given Oxycodone HCl (Roxicodone -) 5 mg PO Q4H PRN PRN Reason: PAIN LEVEL 1-5 Last Admin: 05/24/19 20:12 Dose: 5 mg Sitagliptin Phosphate (Januvia -) 100 mg PO DAILY@0700 [facility] Last Admin: 05/26/19 06:59 Dose: 100 mg - Objective Vital Signs: Vital Signs Temperature 98.0 F 05/26/19 06:00 Pulse Rate 73 05/26/19 06:00 Respiratory Rate 20 05/26/19 06:00 Blood Pressure 111/72 05/26/19 06:00 O2 Sat by Pulse Oximetry (%) 98 05/25/19 21:00 Constitutional: Yes: No Distress, Calm Cardiovascular: Yes: S1, S2 Respiratory: Yes: Regular, CTA Bilaterally Gastrointestinal: Yes: Normal Bowel Sounds, Soft Musculoskeletal: Yes: WNL Extremities: Yes: Other Wound/Incision: Yes: Dressing Dry and Intact Neurological: Yes: Alert, Oriented Psychiatric: Yes: Alert, Oriented Labs: CBC, BMP 05/23/19 06:30 05/23/19 06:30 INR, PTT INR 1.01 (0.83-1.09) 05/22/19 11:15 Assessment/Plan Problem List - Problems (1) Osteomyelitis Code(s): M86.9 - OSTEOMYELITIS, UNSPECIFIED (2) Diabetic foot ulcer Code(s): E11.621 - TYPE 2 DIABETES MELLITUS WITH FOOT ULCER; L97.509 - NON- PRESSURE CHRONIC ULCER OTH PRT UNSP FOOT W UNSP SEVERITY Qualifiers: Diabetic foot ulcer location: toe Diabetes mellitus type: type 2 Laterality: left Non-pressure ulcer stage: unspecified non-pressure ulcer stage Qualified Code(s): E11.621 - Type 2 diabetes mellitus with foot ulcer; L97.529 - Non-pressure chronic ulcer of other part of left foot with unspecified severity (3) Diabetes Code(s): E11.9 - TYPE 2 DIABETES MELLITUS WITHOUT COMPLICATIONS 4 wound infection plan await for identification and sensitivities continue vanco wound care rest as per the team
--- NOTE | 2019-05-26 08:51 | PN ---
Progress Note (short form) - Note Progress Note: Denies any complaints Blood sugar acceptable Vital Signs Period Temp Pulse Resp BP Sys/Ding Pulse Ox Last 24 Hr 97.9 F-99.0 F 71-84 17-20 100-112/64-72 98 PE: AOx3 Neck: Supple, No JVD HEENT: EOMI Lungs: CTA CVS: S1S2 Abd: Benign EXt: Left foot dressing Neuro: No focal deficit CMP Sodium 140 mmol/L (136-145) 05/23/19 06:30 Potassium 4.3 mmol/L (3.5-5.1) 05/23/19 06:30 Chloride 104 mmol/L (98-107) 05/23/19 06:30 Carbon Dioxide 28 mmol/L (21-32) 05/23/19 06:30 Anion Gap 8 MMOL/L (8-16) 05/23/19 06:30 BUN 14.4 mg/dL (7-18) 05/23/19 06:30 Creatinine 0.8 mg/dL (0.55-1.3) 05/23/19 06:30 Est GFR (CKD-EPI)AfAm 128.60 05/23/19 06:30 Est GFR (CKD-EPI)NonAf 110.96 05/23/19 06:30 POC Glucometer 137 UNITS (80-120) 05/26/19 07:00 Random Glucose 168 mg/dL (74-106) H 05/23/19 06:30 Lactic Acid 1.0 mmol/L (0.4-2.0) 05/22/19 11:15 Calcium 8.9 mg/dL (8.5-10.1) 05/23/19 06:30 Total Bilirubin 1.0 mg/dL (0.2-1) 05/23/19 06:30 AST 12 U/L (15-37) L 05/23/19 06:30 ALT 17 U/L (13-61) 05/23/19 06:30 Alkaline Phosphatase 92 U/L (45-117) 05/23/19 06:30 Troponin I 0.00 ng/ml (0.00-0.05) 05/22/19 11:15 Total Protein 6.7 g/dl (6.4-8.2) 05/23/19 06:30 Albumin 3.4 g/dl (3.4-5.0) 05/23/19 06:30 Current Medications Generic Name Dose Route Start Last Admin Trade Name Freq PRN Reason Stop Dose Admin Heparin Sodium (Porcine) 5,000 unit 05/23/19 22:00 05/25/19 23:52 Heparin - SQ 5,000 unit BID JUDITH Administration Vancomycin HCl 1,500 mg/ 500 mls @ 250 mls/hr 05/25/19 14:00 05/25/19 15:23 Dextrose IVPB 250 mls/hr Q24H JUDITH Administration Protocol Insulin Aspart 1 vial 05/24/19 16:30 05/26/19 07:01 Novolog Vial Sliding Scale - SQ Not Given TIDAC JUIDTH Protocol Insulin Aspart 1 vial 05/24/19 22:00 05/25/19 23:52 Novolog Vial Sliding Scale - SQ Not Given HS JUDITH Protocol Oxycodone HCl 5 mg 05/23/19 12:49 05/24/19 20:12 Roxicodone - PO 5 mg Q4H PRN Administration PAIN LEVEL 1-5 Sitagliptin Phosphate 100 mg 05/24/19 07:00 05/26/19 06:59 Januvia - PO 100 mg DAILY@0700 JUDITH Administration AP: Left big toe infection/Osteo: S/P debridement and biopsy T2DM with hyperglycemia BGM QACHS Nutrition consult Januvia 100mg QD Novolog SS coverage Getting vanco in dextroxe Please mix Abx with NS if possible Pt was on Metformin a few years ago which was stopped b/o GI symptoms. Check A1c, may need to add another antidiabetic agent if A1c >7 Will F/U
[2019-05-26] MEDS: HEPARIN NA (PORCINE) 5,000 UNITS/ML 1ML VIAL SQ SCH ×2 (09:53→22:29)
--- NOTE | 2019-05-26 11:38 | PN ---
Progress Note, Physician - Current Medication List Current Medications: Active Medications Heparin Sodium (Porcine) (Heparin -) 5,000 unit SQ BID [facility] Last Admin: 05/26/19 09:53 Dose: 5,000 unit Vancomycin HCl 1,500 mg/ (Dextrose) 500 mls @ 250 mls/hr IVPB Q24H [facility]; Protocol Last Admin: 05/25/19 15:23 Dose: 250 mls/hr Insulin Aspart (Novolog Vial Sliding Scale -) 1 vial SQ TIDAC [facility]; Protocol Last Admin: 05/26/19 07:01 Dose: Not Given Insulin Aspart (Novolog Vial Sliding Scale -) 1 vial SQ HS [facility]; Protocol Last Admin: 05/25/19 23:52 Dose: Not Given Oxycodone HCl (Roxicodone -) 5 mg PO Q4H PRN PRN Reason: PAIN LEVEL 1-5 Last Admin: 05/24/19 20:12 Dose: 5 mg Sitagliptin Phosphate (Januvia -) 100 mg PO DAILY@0700 [facility] Last Admin: 05/26/19 06:59 Dose: 100 mg - Objective Vital Signs: Vital Signs Temperature 98.8 F 05/26/19 10:00 Pulse Rate 86 05/26/19 10:00 Respiratory Rate 18 05/26/19 10:00 Blood Pressure 109/70 05/26/19 10:00 O2 Sat by Pulse Oximetry (%) 98 05/25/19 21:00 Constitutional: Yes: No Distress HENT: Yes: Atraumatic Neck: Yes: Supple Cardiovascular: Yes: Regular Rate and Rhythm Respiratory: Yes: CTA Bilaterally Gastrointestinal: Yes: Normal Bowel Sounds Extremities: Yes: Other (l BIG TOE IN DRESSING) Edema: No Peripheral Pulses WNL: Yes Neurological: Yes: Alert, Oriented Labs: CBC, BMP 05/23/19 06:30 05/23/19 06:30 INR, PTT INR 1.01 (0.83-1.09) 05/22/19 11:15 Problem List - Problems (1) Osteomyelitis Assessment/Plan: L hallux s/p biopsy and debridement abx per id Code(s): M86.9 - OSTEOMYELITIS, UNSPECIFIED (2) Diabetic foot ulcer Assessment/Plan: monitor blood sugars insulin coverage Code(s): E11.621 - TYPE 2 DIABETES MELLITUS WITH FOOT ULCER; L97.509 - NON- PRESSURE CHRONIC ULCER OTH PRT UNSP FOOT W UNSP SEVERITY Qualifiers: Diabetic foot ulcer location: toe Diabetes mellitus type: type 2 Laterality: left Non-pressure ulcer stage: unspecified non-pressure ulcer stage Qualified Code(s): E11.621 - Type 2 diabetes mellitus with foot ulcer; L97.529 - Non-pressure chronic ulcer of other part of left foot with unspecified severity (3) Diabetes Assessment/Plan: on meds bgms insulin coverage, endo consult Code(s): E11.9 - TYPE 2 DIABETES MELLITUS WITHOUT COMPLICATIONS
[2019-05-26] MEDS ORDERED: PT OWN MED DRAWER 7, Y5N ONE (13:04)
[2019-05-26] MEDS: VANCOMYCIN HCL 1,500 MG in DEXTROSE 5%-WATER - 500 ML IVPB SCH (13:09)
--- NOTE | 2019-05-26 17:00 | PN ---
Progress Note (short form) - Note Progress Note: Podiatry F/U; Seen/evaluated at bedside NAD. Denies any complaints. Understands will need PICC. REN: L foot: dressing C/D/I, no active bleeding, no strikethrough. Sutures coapted, no dehiscence noted, no purulent drainage, no fluctuance, no streaking cellulitis, no signs of infection. NO ischemic changes to the foot. Imp: 70 year old diabetic male s/p left foot debridement with bone biopsy POD#1 Iv abx per ID For PICC so likely wednesday wound/Surgical site stable Can do every other day daily dressing changes while admitted Will f/u with Dr. Beckwith upon d/c at wound care
[2019-05-27] MEDS: INSULIN SLIDING SCALE (NOVOLOG) 1 VIAL SQ SCH ×4 (08:15→22:23)
[2019-05-27] MEDS: HEPARIN NA (PORCINE) 5,000 UNITS/ML 1ML VIAL SQ SCH ×2 (10:13→22:21)
--- NOTE | 2019-05-27 10:19 | PN ---
Progress Note, Physician History of Present Illness: patient stable no new issues - Current Medication List Current Medications: Active Medications Heparin Sodium (Porcine) (Heparin -) 5,000 unit SQ BID [facility] Last Admin: 05/27/19 10:13 Dose: 5,000 unit Vancomycin HCl 1,500 mg/ (Dextrose) 500 mls @ 250 mls/hr IVPB Q24H [facility]; Protocol Last Admin: 05/26/19 13:09 Dose: 250 mls/hr Insulin Aspart (Novolog Vial Sliding Scale -) 1 vial SQ TIDAC [facility]; Protocol Last Admin: 05/27/19 08:15 Dose: Not Given Insulin Aspart (Novolog Vial Sliding Scale -) 1 vial SQ HS [facility]; Protocol Last Admin: 05/26/19 22:29 Dose: Not Given Sitagliptin Phosphate (Januvia -) 100 mg PO DAILY@0700 [facility] Last Admin: 05/27/19 06:35 Dose: 100 mg - Objective Vital Signs: Vital Signs Temperature 98.1 F 05/27/19 06:00 Pulse Rate 78 05/27/19 06:00 Respiratory Rate 18 05/27/19 06:00 Blood Pressure 113/73 05/27/19 06:00 O2 Sat by Pulse Oximetry (%) 98 05/26/19 21:00 Constitutional: Yes: No Distress, Calm Cardiovascular: Yes: S1, S2 Respiratory: Yes: Regular, CTA Bilaterally Gastrointestinal: Yes: Normal Bowel Sounds, Soft Musculoskeletal: Yes: WNL Extremities: Yes: Other Wound/Incision: Yes: Dressing Dry and Intact Neurological: Yes: Alert, Oriented Psychiatric: Yes: Alert, Oriented Labs: CBC, BMP 05/23/19 06:30 05/23/19 06:30 INR, PTT INR 1.01 (0.83-1.09) 05/22/19 11:15 Assessment/Plan Problem List - Problems (1) Osteomyelitis Code(s): M86.9 - OSTEOMYELITIS, UNSPECIFIED (2) Diabetic foot ulcer Code(s): E11.621 - TYPE 2 DIABETES MELLITUS WITH FOOT ULCER; L97.509 - NON- PRESSURE CHRONIC ULCER OTH PRT UNSP FOOT W UNSP SEVERITY Qualifiers: Diabetic foot ulcer location: toe Diabetes mellitus type: type 2 Laterality: left Non-pressure ulcer stage: unspecified non-pressure ulcer stage Qualified Code(s): E11.621 - Type 2 diabetes mellitus with foot ulcer; L97.529 - Non-pressure chronic ulcer of other part of left foot with unspecified severity (3) Diabetes Code(s): E11.9 - TYPE 2 DIABETES MELLITUS WITHOUT COMPLICATIONS 4 wound infection plan cx result noted wound care will check vanco trough tomorrow rest as per the team
--- NOTE | 2019-05-27 12:11 | PN ---
Progress Note, Physician - Current Medication List Current Medications: Active Medications Heparin Sodium (Porcine) (Heparin -) 5,000 unit SQ BID [facility] Last Admin: 05/27/19 10:13 Dose: 5,000 unit Vancomycin HCl 1,500 mg/ (Dextrose) 500 mls @ 250 mls/hr IVPB Q24H [facility]; Protocol Last Admin: 05/26/19 13:09 Dose: 250 mls/hr Insulin Aspart (Novolog Vial Sliding Scale -) 1 vial SQ TIDAC [facility]; Protocol Last Admin: 05/27/19 08:15 Dose: Not Given Insulin Aspart (Novolog Vial Sliding Scale -) 1 vial SQ HS [facility]; Protocol Last Admin: 05/26/19 22:29 Dose: Not Given Sitagliptin Phosphate (Januvia -) 100 mg PO DAILY@0700 [facility] Last Admin: 05/27/19 06:35 Dose: 100 mg - Objective Vital Signs: Vital Signs Temperature 98.1 F 05/27/19 06:00 Pulse Rate 78 05/27/19 06:00 Respiratory Rate 18 05/27/19 06:00 Blood Pressure 113/73 05/27/19 06:00 O2 Sat by Pulse Oximetry (%) 98 05/26/19 21:00 Constitutional: Yes: No Distress HENT: Yes: Atraumatic Neck: Yes: Supple Cardiovascular: Yes: Regular Rate and Rhythm Respiratory: Yes: CTA Bilaterally Gastrointestinal: Yes: Normal Bowel Sounds Extremities: Yes: Other (l BIG TOE CELLULITIS) Edema: No Neurological: Yes: Alert, Oriented Labs: CBC, BMP 05/23/19 06:30 05/23/19 06:30 INR, PTT INR 1.01 (0.83-1.09) 05/22/19 11:15 Problem List - Problems (1) Osteomyelitis Assessment/Plan: L hallux s/p biopsy and debridement abx per id Code(s): M86.9 - OSTEOMYELITIS, UNSPECIFIED (2) Diabetic foot ulcer Assessment/Plan: monitor blood sugars insulin coverage Code(s): E11.621 - TYPE 2 DIABETES MELLITUS WITH FOOT ULCER; L97.509 - NON- PRESSURE CHRONIC ULCER OTH PRT UNSP FOOT W UNSP SEVERITY Qualifiers: Diabetic foot ulcer location: toe Diabetes mellitus type: type 2 Laterality: left Non-pressure ulcer stage: unspecified non-pressure ulcer stage Qualified Code(s): E11.621 - Type 2 diabetes mellitus with foot ulcer; L97.529 - Non-pressure chronic ulcer of other part of left foot with unspecified severity (3) Diabetes Assessment/Plan: on meds bgms insulin coverage, endo consult Code(s): E11.9 - TYPE 2 DIABETES MELLITUS WITHOUT COMPLICATIONS
[2019-05-27] MEDS: VANCOMYCIN HCL 1,500 MG in DEXTROSE 5%-WATER - 500 ML IVPB SCH (15:39)
[2019-05-28] MEDS: INSULIN SLIDING SCALE (NOVOLOG) 1 VIAL SQ SCH ×5 (06:24→21:12)
--- NOTE | 2019-05-28 09:09 | PN ---
Progress Note, Physician History of Present Illness: patient stable no new issues - Current Medication List Current Medications: Active Medications Heparin Sodium (Porcine) (Heparin -) 5,000 unit SQ BID [facility] Last Admin: 05/27/19 22:21 Dose: 5,000 unit Vancomycin HCl 1,500 mg/ (Dextrose) 500 mls @ 250 mls/hr IVPB Q24H [facility]; Protocol Last Admin: 05/27/19 15:39 Dose: 250 mls/hr Insulin Aspart (Novolog Vial Sliding Scale -) 1 vial SQ TIDAC [facility]; Protocol Last Admin: 05/28/19 06:24 Dose: Not Given Insulin Aspart (Novolog Vial Sliding Scale -) 1 vial SQ HS [facility]; Protocol Last Admin: 05/27/19 22:23 Dose: Not Given Sitagliptin Phosphate (Januvia -) 100 mg PO DAILY@0700 [facility] Last Admin: 05/28/19 06:12 Dose: 100 mg - Objective Vital Signs: Vital Signs Temperature 97.8 F 05/28/19 05:00 Pulse Rate 74 05/28/19 05:00 Respiratory Rate 18 05/28/19 05:00 Blood Pressure 106/68 05/28/19 05:00 O2 Sat by Pulse Oximetry (%) 100 05/27/19 21:00 Constitutional: Yes: No Distress, Calm Cardiovascular: Yes: S1, S2 Respiratory: Yes: Regular, CTA Bilaterally Gastrointestinal: Yes: Normal Bowel Sounds, Soft Musculoskeletal: Yes: WNL Extremities: Yes: Other Neurological: Yes: Alert, Oriented Psychiatric: Yes: Alert, Oriented Labs: CBC, BMP 05/23/19 06:30 05/23/19 06:30 INR, PTT INR 1.01 (0.83-1.09) 05/22/19 11:15 Assessment/Plan Problem List - Problems (1) Osteomyelitis Code(s): M86.9 - OSTEOMYELITIS, UNSPECIFIED (2) Diabetic foot ulcer Code(s): E11.621 - TYPE 2 DIABETES MELLITUS WITH FOOT ULCER; L97.509 - NON- PRESSURE CHRONIC ULCER OTH PRT UNSP FOOT W UNSP SEVERITY Qualifiers: Diabetic foot ulcer location: toe Diabetes mellitus type: type 2 Laterality: left Non-pressure ulcer stage: unspecified non-pressure ulcer stage Qualified Code(s): E11.621 - Type 2 diabetes mellitus with foot ulcer; L97.529 - Non-pressure chronic ulcer of other part of left foot with unspecified severity (3) Diabetes Code(s): E11.9 - TYPE 2 DIABETES MELLITUS WITHOUT COMPLICATIONS 4 wound infection plan cx result noted wound care await for results rest as per the team
[2019-05-28] MEDS: HEPARIN NA (PORCINE) 5,000 UNITS/ML 1ML VIAL SQ SCH ×2 (10:55→21:14)
--- NOTE | 2019-05-28 13:53 | PN ---
Progress Note, Physician - Current Medication List Current Medications: Active Medications Heparin Sodium (Porcine) (Heparin -) 5,000 unit SQ BID [facility] Last Admin: 05/28/19 10:55 Dose: 5,000 unit Vancomycin HCl 1,500 mg/ (Dextrose) 500 mls @ 250 mls/hr IVPB Q24H [facility]; Protocol Last Admin: 05/27/19 15:39 Dose: 250 mls/hr Insulin Aspart (Novolog Vial Sliding Scale -) 1 vial SQ TIDAC [facility]; Protocol Last Admin: 05/28/19 12:57 Dose: Not Given Insulin Aspart (Novolog Vial Sliding Scale -) 1 vial SQ HS [facility]; Protocol Last Admin: 05/27/19 22:23 Dose: Not Given Sitagliptin Phosphate (Januvia -) 100 mg PO DAILY@0700 [facility] Last Admin: 05/28/19 06:12 Dose: 100 mg - Objective Vital Signs: Vital Signs Temperature 97.8 F 05/28/19 05:00 Pulse Rate 74 05/28/19 05:00 Respiratory Rate 18 05/28/19 05:00 Blood Pressure 106/68 05/28/19 05:00 O2 Sat by Pulse Oximetry (%) 100 05/27/19 21:00 Constitutional: Yes: No Distress HENT: Yes: Atraumatic Neck: Yes: Supple Cardiovascular: Yes: Regular Rate and Rhythm Respiratory: Yes: CTA Bilaterally Gastrointestinal: Yes: Normal Bowel Sounds Extremities: Yes: Other (l BIG TOE INFECTION) Neurological: Yes: Alert, Oriented Labs: CBC, BMP 05/23/19 06:30 05/23/19 06:30 INR, PTT INR 1.01 (0.83-1.09) 05/22/19 11:15 Problem List - Problems (1) Osteomyelitis Assessment/Plan: L hallux s/p biopsy and debridement abx per id Code(s): M86.9 - OSTEOMYELITIS, UNSPECIFIED (2) Diabetic foot ulcer Assessment/Plan: monitor blood sugars insulin coverage Code(s): E11.621 - TYPE 2 DIABETES MELLITUS WITH FOOT ULCER; L97.509 - NON- PRESSURE CHRONIC ULCER OTH PRT UNSP FOOT W UNSP SEVERITY Qualifiers: Diabetic foot ulcer location: toe Diabetes mellitus type: type 2 Laterality: left Non-pressure ulcer stage: unspecified non-pressure ulcer stage Qualified Code(s): E11.621 - Type 2 diabetes mellitus with foot ulcer; L97.529 - Non-pressure chronic ulcer of other part of left foot with unspecified severity (3) Diabetes Assessment/Plan: on meds bgms insulin coverage, endo consult Code(s): E11.9 - TYPE 2 DIABETES MELLITUS WITHOUT COMPLICATIONS
[2019-05-28] MEDS: VANCOMYCIN HCL 1,500 MG in DEXTROSE 5%-WATER - 500 ML IVPB SCH (14:24)
[2019-05-28] MEDS ORDERED: INSULIN (NOVOLOG) ASPART 100 UNITS/ML 10ML VIAL ONE (17:58)
[2019-05-29] MEDS: INSULIN SLIDING SCALE (NOVOLOG) 1 VIAL SQ SCH ×4 (06:19→21:13)
--- NOTE | 2019-05-29 09:05 | PN ---
Progress Note, Physician History of Present Illness: stable no new issues - Current Medication List Current Medications: Active Medications Heparin Sodium (Porcine) (Heparin -) 5,000 unit SQ BID [facility] Last Admin: 05/28/19 21:14 Dose: Not Given Insulin Aspart (Novolog Vial Sliding Scale -) 1 vial SQ TIDAC [facility]; Protocol Last Admin: 05/29/19 06:19 Dose: Not Given Insulin Aspart (Novolog Vial Sliding Scale -) 1 vial SQ HS [facility]; Protocol Last Admin: 05/28/19 21:12 Dose: Not Given Sitagliptin Phosphate (Januvia -) 100 mg PO DAILY@0700 [facility] Last Admin: 05/29/19 06:17 Dose: 100 mg - Objective Vital Signs: Vital Signs Temperature 98.1 F 05/29/19 06:22 Pulse Rate 79 05/29/19 06:22 Respiratory Rate 18 05/29/19 06:22 Blood Pressure 166/73 05/29/19 06:22 O2 Sat by Pulse Oximetry (%) 100 05/27/19 21:00 Constitutional: Yes: No Distress, Calm Cardiovascular: Yes: Regular Rate and Rhythm Respiratory: Yes: Regular, CTA Bilaterally Gastrointestinal: Yes: Normal Bowel Sounds, Soft Musculoskeletal: Yes: WNL Extremities: Yes: Other Wound/Incision: Yes: Dressing Dry and Intact Neurological: Yes: Alert, Oriented Psychiatric: Yes: Alert, Oriented Labs: CBC, BMP 05/23/19 06:30 05/23/19 06:30 INR, PTT INR 1.01 (0.83-1.09) 05/22/19 11:15 Assessment/Plan Problem List - Problems (1) Osteomyelitis Code(s): M86.9 - OSTEOMYELITIS, UNSPECIFIED (2) Diabetic foot ulcer Code(s): E11.621 - TYPE 2 DIABETES MELLITUS WITH FOOT ULCER; L97.509 - NON- PRESSURE CHRONIC ULCER OTH PRT UNSP FOOT W UNSP SEVERITY Qualifiers: Diabetic foot ulcer location: toe Diabetes mellitus type: type 2 Laterality: left Non-pressure ulcer stage: unspecified non-pressure ulcer stage Qualified Code(s): E11.621 - Type 2 diabetes mellitus with foot ulcer; L97.529 - Non-pressure chronic ulcer of other part of left foot with unspecified severity (3) Diabetes Code(s): E11.9 - TYPE 2 DIABETES MELLITUS WITHOUT COMPLICATIONS 4 wound infection plan cx result noted wound care sensitivities noted will have to stop vanco will start patient on zosyn t
[2019-05-29] MEDS ORDERED: PIPERACILLIN/TAZOBACTAM 3.375 GM VIAL IVPB ONE ×2 (09:36→17:48)
[2019-05-29] MEDS ORDERED: DEXTROSE 5%-WATER - 50 ML IVPB ONE ×2 (09:37→17:49)
[2019-05-29] MEDS ORDERED: VANCOMYCIN 2,000 MG in DEXTROSE 5%-WATER - 500 ML IVPB SCH (10:00)
[2019-05-29] MEDS: PIPERACILLIN/TAZOB 3.375 GM 3.375 GM in DEXTROSE 5%-WATER - 50 ML IVPB SCH ×2 (10:16→18:27)
[2019-05-29] MEDS: HEPARIN NA (PORCINE) 5,000 UNITS/ML 1ML VIAL SQ SCH ×2 (10:17→21:13)
--- NOTE | 2019-05-29 12:20 | DS ---
Physical Examination Vital Signs: Vital Signs Temperature 98.1 F 05/29/19 06:22 Pulse Rate 79 05/29/19 06:22 Respiratory Rate 18 05/29/19 06:22 Blood Pressure 166/73 05/29/19 06:22 O2 Sat by Pulse Oximetry (%) 100 05/27/19 21:00 Labs: CBC, BMP 05/23/19 06:30 05/23/19 06:30 Discharge Summary Reason For Visit: DIABETIC FOOT ULCER/OSTEOMYELITIS Current Active Problems Diabetes (Acute) Osteomyelitis (Acute) Condition: Stable - Instructions - Home Medications Comprehensive Discharge Medication List: Ambulatory Orders Sitagliptin Phosphate [Januvia] 100 mg PO BID 05/16/19 dc home iv abx per id piccline order
--- NOTE | 2019-05-29 19:53 | PN ---
Progress Note, Physician - Current Medication List Current Medications: Active Medications Heparin Sodium (Porcine) (Heparin -) 5,000 unit SQ BID JUDITH Last Admin: 05/29/19 10:17 Dose: 5,000 unit Piperacillin Sod/Tazobactam (Sod 3.375 gm/ Dextrose) 50 mls @ 100 mls/hr IVPB Q8H-IV JUDITH; Protocol Last Admin: 05/29/19 18:27 Dose: 100 mls/hr Insulin Aspart (Novolog Vial Sliding Scale -) 1 vial SQ TIDAC JUDITH; Protocol Last Admin: 05/29/19 18:26 Dose: Not Given Insulin Aspart (Novolog Vial Sliding Scale -) 1 vial SQ HS JUDITH; Protocol Last Admin: 05/28/19 21:12 Dose: Not Given Sitagliptin Phosphate (Januvia -) 100 mg PO DAILY@0700 [facility] Last Admin: 05/29/19 06:17 Dose: 100 mg - Objective Vital Signs: Vital Signs Temperature 97.9 F 05/29/19 14:43 Pulse Rate 80 05/29/19 14:43 Respiratory Rate 20 05/29/19 14:43 Blood Pressure 121/75 05/29/19 14:43 O2 Sat by Pulse Oximetry (%) 100 05/27/19 21:00 Constitutional: Yes: No Distress HENT: Yes: Atraumatic Neck: Yes: Supple Cardiovascular: Yes: Regular Rate and Rhythm Respiratory: Yes: CTA Bilaterally Gastrointestinal: Yes: Normal Bowel Sounds Extremities: Yes: Other (LEFT BIG TOE OSTEO) Neurological: Yes: Alert, Oriented Labs: CBC, BMP 05/23/19 06:30 05/23/19 06:30 INR, PTT INR 1.01 (0.83-1.09) 05/22/19 11:15 Problem List - Problems (1) Osteomyelitis Assessment/Plan: L hallux s/p biopsy and debridement abx per id Code(s): M86.9 - OSTEOMYELITIS, UNSPECIFIED (2) Diabetic foot ulcer Assessment/Plan: monitor blood sugars insulin coverage Code(s): E11.621 - TYPE 2 DIABETES MELLITUS WITH FOOT ULCER; L97.509 - NON- PRESSURE CHRONIC ULCER OTH PRT UNSP FOOT W UNSP SEVERITY Qualifiers: Diabetic foot ulcer location: toe Diabetes mellitus type: type 2 Laterality: left Non-pressure ulcer stage: unspecified non-pressure ulcer stage Qualified Code(s): E11.621 - Type 2 diabetes mellitus with foot ulcer; L97.529 - Non-pressure chronic ulcer of other part of left foot with unspecified severity (3) Diabetes Assessment/Plan: on meds bgms insulin coverage, endo consult Code(s): E11.9 - TYPE 2 DIABETES MELLITUS WITHOUT COMPLICATIONS
[2019-05-30] MEDS ORDERED: DEXTROSE 5%-WATER - 50 ML IVPB ONE ×2 (00:59→08:52)
[2019-05-30] MEDS ORDERED: PIPERACILLIN/TAZOBACTAM 3.375 GM VIAL IVPB ONE ×2 (00:59→08:51)
[2019-05-30] MEDS: PIPERACILLIN/TAZOB 3.375 GM 3.375 GM in DEXTROSE 5%-WATER - 50 ML IVPB SCH ×2 (01:19→11:28)
[2019-05-30] MEDS: INSULIN SLIDING SCALE (NOVOLOG) 1 VIAL SQ SCH ×3 (06:20→16:55)
[2019-05-30] MEDS: HEPARIN NA (PORCINE) 5,000 UNITS/ML 1ML VIAL SQ SCH (11:28)
--- NOTE | 2019-05-30 11:51 | PN ---
Progress Note, Physician History of Present Illness: stable no new issues - Current Medication List Current Medications: Active Medications Heparin Sodium (Porcine) (Heparin -) 5,000 unit SQ BID JUDITH Last Admin: 05/30/19 11:28 Dose: 5,000 unit Daptomycin 500 mg/ Sodium (Chloride) 50 mls @ 100 mls/hr IVPB ONCE ONE Stop: 05/30/19 13:29 Insulin Aspart (Novolog Vial Sliding Scale -) 1 vial SQ TIDAC [facility]; Protocol Last Admin: 05/30/19 11:39 Dose: 2 units Insulin Aspart (Novolog Vial Sliding Scale -) 1 vial SQ HS [facility]; Protocol Last Admin: 05/29/19 21:13 Dose: Not Given Sitagliptin Phosphate (Januvia -) 100 mg PO DAILY@0700 [facility] Last Admin: 05/30/19 06:20 Dose: 100 mg - Objective Vital Signs: Vital Signs Temperature 97.6 F 05/30/19 06:12 Pulse Rate 73 05/30/19 06:12 Respiratory Rate 20 05/30/19 06:12 Blood Pressure 108/70 05/30/19 06:12 O2 Sat by Pulse Oximetry (%) 100 05/27/19 21:00 Constitutional: Yes: No Distress, Calm Cardiovascular: Yes: Regular Rate and Rhythm Respiratory: Yes: Regular, CTA Bilaterally Gastrointestinal: Yes: Normal Bowel Sounds, Soft Musculoskeletal: Yes: WNL Extremities: Yes: Other Wound/Incision: Yes: Dressing Dry and Intact Neurological: Yes: Alert, Oriented Psychiatric: Yes: Alert, Oriented Labs: CBC, BMP 05/23/19 06:30 05/23/19 06:30 INR, PTT INR 1.01 (0.83-1.09) 05/22/19 11:15 Assessment/Plan Problem List - Problems (1) Osteomyelitis Code(s): M86.9 - OSTEOMYELITIS, UNSPECIFIED (2) Diabetic foot ulcer Code(s): E11.621 - TYPE 2 DIABETES MELLITUS WITH FOOT ULCER; L97.509 - NON- PRESSURE CHRONIC ULCER OTH PRT UNSP FOOT W UNSP SEVERITY Qualifiers: Diabetic foot ulcer location: toe Diabetes mellitus type: type 2 Laterality: left Non-pressure ulcer stage: unspecified non-pressure ulcer stage Qualified Code(s): E11.621 - Type 2 diabetes mellitus with foot ulcer; L97.529 - Non-pressure chronic ulcer of other part of left foot with unspecified severity (3) Diabetes Code(s): E11.9 - TYPE 2 DIABETES MELLITUS WITHOUT COMPLICATIONS 4 wound infection plan cx result noted wound care sensitivities noted patient will go on dapto for 5 weeks
[2019-05-30] MEDS ORDERED: DAPTOMYCIN 500 MG in SODIUM CHLORIDE 50 ML IVPB ONE (13:00)
--- NOTE | 2019-05-30 14:45 | PN ---
Progress Note (short form) - Note Progress Note: Denies any complaints Blood sugar intermittenly high Vital Signs Period Temp Pulse Resp BP Sys/Ding Pulse Ox Last 24 Hr 97.1 F-98.1 F 73-83 19-20 108-121/70-75 PE: AOx3 Neck: Supple, No JVD HEENT: EOMI Lungs: CTA CVS: S1S2 Abd: Benign EXt: Left foot dressing Neuro: No focal deficit CMP Sodium 140 mmol/L (136-145) 05/23/19 06:30 Potassium 4.3 mmol/L (3.5-5.1) 05/23/19 06:30 Chloride 104 mmol/L (98-107) 05/23/19 06:30 Carbon Dioxide 28 mmol/L (21-32) 05/23/19 06:30 Anion Gap 8 MMOL/L (8-16) 05/23/19 06:30 BUN 14.4 mg/dL (7-18) 05/23/19 06:30 Creatinine 0.8 mg/dL (0.55-1.3) 05/23/19 06:30 Est GFR (CKD-EPI)AfAm 128.60 05/23/19 06:30 Est GFR (CKD-EPI)NonAf 110.96 05/23/19 06:30 POC Glucometer 160 UNITS (80-120) 05/30/19 11:30 Random Glucose 168 mg/dL (74-106) H 05/23/19 06:30 Lactic Acid 1.0 mmol/L (0.4-2.0) 05/22/19 11:15 Calcium 8.9 mg/dL (8.5-10.1) 05/23/19 06:30 Total Bilirubin 1.0 mg/dL (0.2-1) 05/23/19 06:30 AST 12 U/L (15-37) L 05/23/19 06:30 ALT 17 U/L (13-61) 05/23/19 06:30 Alkaline Phosphatase 92 U/L (45-117) 05/23/19 06:30 Troponin I 0.00 ng/ml (0.00-0.05) 05/22/19 11:15 Total Protein 6.7 g/dl (6.4-8.2) 05/23/19 06:30 Albumin 3.4 g/dl (3.4-5.0) 05/23/19 06:30 Current Medications Generic Name Dose Route Start Last Admin Trade Name Freq PRN Reason Stop Dose Admin Heparin Sodium (Porcine) 5,000 unit 05/23/19 22:00 05/30/19 11:28 Heparin - SQ 5,000 unit BID JUDITH Administration Insulin Aspart 1 vial 05/24/19 16:30 05/30/19 11:39 Novolog Vial Sliding Scale - SQ 2 units TIDAC JUDITH Administration Protocol Insulin Aspart 1 vial 05/24/19 22:00 05/29/19 21:13 Novolog Vial Sliding Scale - SQ Not Given HS JUDITH Protocol Sitagliptin Phosphate 100 mg 05/24/19 07:00 05/30/19 06:20 Januvia - PO 100 mg DAILY@0700 [facility] Administration AP: Left big toe infection/Osteo: S/P debridement and biopsy T2DM with hyperglycemia BGM QACHS Januvia 100mg QD Novolog SS coverage Pt was on Metformin a few years ago which was stopped b/o GI symptoms. Check A1c as outpt, May need to add another antidiabetic agent if A1c >7 . F/u in office in one week. Will F/U
--- NOTE | 2019-05-30 15:50 | PN ---
Progress Note (short form) - Note Progress Note: Podiatry F/U: Seen/evaluated at bedside NAD. Pain controlled, denies F/V/n/C/SOB/CP. Afebrile. S/p L great toe debridement with bone biopsy. REN: L foot: pedal pulses palpable, TG wnl, CFT brisk to all toes. Plantar hallux diabetic ulcer with superficial eschar, underlying granular tissue, no purulence , no fluctuance, no streaking cellulitis, no signs of infection. Sutures well coapted, no dehiscence noted. Minimal tenderness to palpation. No ischemic changes to the foot. Imp: 43 year old diabetic male s/p left great toe debridement with bone biopsy 1. IV abx per infectious disease 2. Partial WB with surgical shoe 3. Continue local care with bactroban 4. Patient to f/u in wound healing center upon discharge. Erma Beckwith DPM
[2019-05-30 17:44] VITALS: BP 127/77; PULSE 88; TEMP 98.7
--- NOTE | 2019-05-30 17:46 | DS ---
Physical Examination Vital Signs: Vital Signs Temperature 98.7 F 05/30/19 17:43 Pulse Rate 88 05/30/19 17:43 Respiratory Rate 18 05/30/19 17:43 Blood Pressure 127/77 05/30/19 17:43 O2 Sat by Pulse Oximetry (%) 97 05/30/19 11:30 Constitutional: Yes: No Distress HENT: Yes: Atraumatic Neck: Yes: Supple Cardiovascular: Yes: Regular Rate and Rhythm Respiratory: Yes: CTA Bilaterally Gastrointestinal: Yes: Normal Bowel Sounds Extremities: Yes: Other (L foot in dressing) Neurological: Yes: Alert, Oriented Labs: CBC, BMP 05/23/19 06:30 05/23/19 06:30 Discharge Summary Reason For Visit: DIABETIC FOOT ULCER/OSTEOMYELITIS Current Active Problems Diabetes (Acute) Osteomyelitis (Acute) Condition: Stable - Instructions Diet, Activity, Other Instructions: ON IV ABX DURATION AND TYPE OF ABX PER ID: Daptomycin for 5 weeks dick Pozo 28 a las 12pm en [facility]. SEE DIABETES DOCTOR IN 1 WEEKplan PER ID cx result noted wound care sensitivities noted patient will go on dapto for 5 weeks Referrals: Yeni Patricio MD [Staff Physician] - - Home Medications Comprehensive Discharge Medication List: Ambulatory Orders Sitagliptin Phosphate [Januvia] 100 mg PO BID 05/16/19 dc on iv abx patient will come to hospital daily for infusionplan cx result noted wound care sensitivities noted patient will go on dapto...per id for 5 weeks wound care/dressing change
[2019-05-31 13:25] LABS: HEMATOCRIT 39.6 % (35.4-49); HEMOGLOBIN 13.9 GM/dL (11.7-16.9); MCH 29.7 pg (25.7-33.7); MCHC 35.1 g/dl (32.0-35.9); MEAN CELL VOLUME 84.6 fl (80-96); MEAN PLT VOLUME 8.6 fl (7.5-11.1); PLATELET COUNT 257 K/MM3 (134-434); RBC 4.68 M/mm3 (4.00-5.60); RDW 13.5 % (11.9-15.9)
[2019-05-31 13:50] LABS: BLOOD UREA NITROGEN 14.6 mg/dL (7-18); CALCIUM 9.4 mg/dL (8.5-10.1); CREATININE 0.8 mg/dL (0.55-1.3); POTASSIUM 4.3 mmol/L (3.5-5.1)
[2019-05-31 14:50] LABS: ERYTHROCYTE SEDIMENTATION RATE 31 mm/hr (0-10)
[2019-06-28 09:42] LABS: HEMATOCRIT 40.4 % (35.4-49); MCHC 34.8 g/dl (32.0-35.9); MEAN CELL VOLUME 86.3 fl (80-96); MEAN PLT VOLUME 8.9 fl (7.5-11.1); PLATELET COUNT 243 K/MM3 (134-434); RBC 4.68 M/mm3 (4.00-5.60); RDW 14.2 % (11.9-15.9); WHITE BLOOD COUNT 6.8 K/mm3 (4.0-10.0)
[2019-06-28 10:14] LABS: BLOOD UREA NITROGEN 26.6 mg/dL (7-18); CALCIUM 9.9 mg/dL (8.5-10.1); CREATININE 0.8 mg/dL (0.55-1.3)
[2019-06-28 12:12] LABS: ERYTHROCYTE SEDIMENTATION RATE 13 mm/hr (0-10)
== END 2019-05-30 19:46 | disposition home or self-care (01) | DRG 317 ==
LOC: JER 09:36 → JERBED 10:48 → J7W 20:24
PROVIDERS: ADMIT Internal Medicine; ATTEND Internal Medicine
PROC: 0KBW0ZZ Excision of Left Foot Muscle, Open Approach (ICD-10-PCS; 2019-05-23)
PROC: 0QBR0ZX Excision of Left Toe Phalanx, Open Approach, Diagnostic (ICD-10-PCS; 2019-05-23)
PROC: 02HV33Z Insertion of Infusion Device into Superior Vena Cava, Percutaneous Approach (ICD-10-PCS; principal; 2019-05-30)
PROC: B518ZZA Fluoroscopy of Superior Vena Cava, Guidance (ICD-10-PCS; 2019-05-30)
DX: E11.621 Type 2 diabetes mellitus with foot ulcer (principal); E11.69 Type 2 diabetes mellitus with other specified complication; L97.528 Non-pressure chronic ulcer of other part of left foot with other specified severity; M86.8X7 Other osteomyelitis, ankle and foot; B95.7 Other staphylococcus as the cause of diseases classified elsewhere; B95.2 Enterococcus as the cause of diseases classified elsewhere; L03.032 Cellulitis of left toe; E11.65 Type 2 diabetes mellitus with hyperglycemia; Z91.14 Patient's other noncompliance with medication regimen
CPT/HCPCS: 36415; 36569; 71045-TC-FY; 73630-TC-LT; 77001-TC-FY; 80048; 80053; 81003; 82009; 82550; 82803; 82962; 83605; 84484; 85025; 85027; 85610; 85651; 85730; 86140; 86850; 86900; 86901; 87040; 87070; 87075; 87086; 87186; 87205; 88304-TC; 88305-TC; 88311-TC; 93005; 93010; 94760; 99284-25; C1751; G0480; J0878; J1644; J7030

== ENCOUNTER → 2019-05-31 | Day surgery (SDC) | payer OTHER ==
[~2019-05-31] MED LIST: DAPTOMYCIN 500 MG in SODIUM CHLORIDE 50 ML IVPB ONE
[2019-05-31 15:25] VITALS: BP 122/77; PULSE 84; TEMP 98.6
== END | disposition home or self-care (01) ==
LOC: JASU-ENDO 12:50 → JINFUSION 12:50
PROVIDERS: ATTEND Internal Medicine Infectious Disease
DX: E11.621 Type 2 diabetes mellitus with foot ulcer (principal); M86.8X7 Other osteomyelitis, ankle and foot; B95.7 Other staphylococcus as the cause of diseases classified elsewhere
CPT/HCPCS: 96365; J0878

== ENCOUNTER 2019-06-01 12:45 | Day surgery (SDC) | payer OTHER ==
[2019-06-01 13:31] VITALS: TEMP 98.4
[2019-06-01 14:43] VITALS: BP 126/84; PULSE 80
== END 2019-06-01 14:29 | disposition home or self-care (01) ==
LOC: JINFUSION 12:45
PROVIDERS: ATTEND Internal Medicine Infectious Disease
DX: E11.621 Type 2 diabetes mellitus with foot ulcer (principal); M86.8X7 Other osteomyelitis, ankle and foot; B95.7 Other staphylococcus as the cause of diseases classified elsewhere
CPT/HCPCS: 96365; J0878

== ENCOUNTER 2019-06-02 12:59 | Day surgery (SDC) | payer OTHER ==
[2019-06-02 13:49] VITALS: TEMP 98.1
[2019-06-02 14:16] VITALS: BP 120/60; PULSE 80
== END 2019-06-02 14:10 | disposition home or self-care (01) ==
LOC: JINFUSION 12:59
PROVIDERS: ATTEND Internal Medicine Infectious Disease
DX: E11.21 Type 2 diabetes mellitus with diabetic nephropathy (principal); M86.8X7 Other osteomyelitis, ankle and foot; B95.7 Other staphylococcus as the cause of diseases classified elsewhere
CPT/HCPCS: 96365; J0878

== ENCOUNTER 2019-06-03 09:20 | Day surgery (SDC) | payer OTHER ==
[2019-06-03 10:36] VITALS: BP 117/77; PULSE 82; TEMP 98
[2019-06-03] MEDS ORDERED: DAPTOMYCIN 500 MG in SODIUM CHLORIDE 50 ML IVPB ONE (11:00)
== END 2019-06-03 11:59 | disposition home or self-care (01) ==
LOC: J7W 09:20 → JINFUSION 09:20
PROVIDERS: ATTEND Internal Medicine Infectious Disease
DX: E11.21 Type 2 diabetes mellitus with diabetic nephropathy (principal); M86.8X7 Other osteomyelitis, ankle and foot; B95.7 Other staphylococcus as the cause of diseases classified elsewhere
CPT/HCPCS: 96365; J0878

== ENCOUNTER 2019-06-04 10:34 | Day surgery (SDC) | payer OTHER ==
[2019-06-04] MEDS ORDERED: DAPTOMYCIN 500 MG in SODIUM CHLORIDE 50 ML IVPB ONE (12:00)
[2019-06-04 12:22] VITALS: BP 121/76; PULSE 88; TEMP 98.2
== END 2019-06-04 12:56 | disposition home or self-care (01) ==
LOC: JINFUSION 10:34 → J7W 10:35 → JINFUSION 12:56
PROVIDERS: ATTEND Internal Medicine Infectious Disease
DX: E11.21 Type 2 diabetes mellitus with diabetic nephropathy (principal); M86.8X7 Other osteomyelitis, ankle and foot; B95.7 Other staphylococcus as the cause of diseases classified elsewhere
CPT/HCPCS: 96365; J0878

== ENCOUNTER 2019-06-05 09:16 | Day surgery (SDC) | payer OTHER ==
[2019-06-05] MEDS ORDERED: DAPTOMYCIN 500 MG in SODIUM CHLORIDE 50 ML IVPB ONE (10:45)
[2019-06-05 13:20] VITALS: TEMP 98.2
[2019-06-05 13:50] VITALS: BP 117/79; PULSE 89
== END 2019-06-05 12:30 | disposition home or self-care (01) ==
LOC: JINFUSION 09:16 → J7W 09:26 → JINFUSION 12:30
PROVIDERS: ATTEND Internal Medicine Infectious Disease
DX: E11.21 Type 2 diabetes mellitus with diabetic nephropathy (principal); M86.8X7 Other osteomyelitis, ankle and foot; B95.7 Other staphylococcus as the cause of diseases classified elsewhere
CPT/HCPCS: 96365; J0878

== ENCOUNTER 2019-06-06 12:15 | Day surgery (SDC) | payer OTHER ==
[2019-06-06 12:56] VITALS: TEMP 98
[2019-06-06 16:08] VITALS: BP 116/80; PULSE 87
== END 2019-06-06 13:45 | disposition home or self-care (01) ==
LOC: JINFUSION 12:15
PROVIDERS: ATTEND Internal Medicine Infectious Disease
DX: E11.21 Type 2 diabetes mellitus with diabetic nephropathy (principal); M86.8X7 Other osteomyelitis, ankle and foot; B95.7 Other staphylococcus as the cause of diseases classified elsewhere
CPT/HCPCS: 96365; J0878

== ENCOUNTER 2019-06-07 10:55 | Day surgery (SDC) | payer OTHER ==
[2019-06-07 11:43] VITALS: TEMP 98.3
[2019-06-07 12:37] VITALS: BP 118/67; PULSE 88
[2019-06-07 12:47] LABS: BASO % 0.5 % (0-2.0); EOS % 1.1 % (0-4.5); HEMATOCRIT 38.3 % (35.4-49); HEMOGLOBIN 13.4 GM/dL (11.7-16.9); LYMPH % 24.9 % (8-40); MCH 29.9 pg (25.7-33.7); MEAN CELL VOLUME 85.3 fl (80-96); MEAN PLT VOLUME 9.1 fl (7.5-11.1); MONO % 6.2 % (3.8-10.2); NEUT % 67.3 % (42.8-82.8); PLATELET COUNT 230 K/MM3 (134-434); RBC 4.48 M/mm3 (4.00-5.60); RDW 13.7 % (11.9-15.9); WHITE BLOOD COUNT 7.2 K/mm3 (4.0-10.0)
[2019-06-07 13:06] LABS: BLOOD UREA NITROGEN 21.4 mg/dL (7-18); CALCIUM 9.6 mg/dL (8.5-10.1); CREATININE 0.8 mg/dL (0.55-1.3); POTASSIUM 4.7 mmol/L (3.5-5.1)
[2019-06-07 13:54] LABS: ERYTHROCYTE SEDIMENTATION RATE 13 mm/hr (0-10)
== END 2019-06-07 12:35 | disposition home or self-care (01) ==
LOC: JINFUSION 10:55
PROVIDERS: ATTEND Internal Medicine Infectious Disease
DX: E11.21 Type 2 diabetes mellitus with diabetic nephropathy (principal); M86.8X7 Other osteomyelitis, ankle and foot; B95.7 Other staphylococcus as the cause of diseases classified elsewhere
CPT/HCPCS: 36415; 80048; 85025; 85651; 86140; 96365; J0878

== ENCOUNTER 2019-06-08 10:40 | Day surgery (SDC) | payer OTHER ==
[2019-06-08 13:42] VITALS: BP 118/70; PULSE 76; TEMP 98.2
== END 2019-06-08 12:00 | disposition home or self-care (01) ==
LOC: JINFUSION 10:40
PROVIDERS: ATTEND Internal Medicine Infectious Disease
DX: E11.21 Type 2 diabetes mellitus with diabetic nephropathy (principal); M86.8X7 Other osteomyelitis, ankle and foot; B95.7 Other staphylococcus as the cause of diseases classified elsewhere
CPT/HCPCS: 96365; J0878

== ENCOUNTER 2019-06-09 12:37 | Day surgery (SDC) | payer OTHER ==
[2019-06-09 14:49] VITALS: BP 117/78; PULSE 88; TEMP 98.4
== END 2019-06-09 13:50 | disposition home or self-care (01) ==
LOC: JINFUSION 12:37
PROVIDERS: ATTEND Internal Medicine Infectious Disease
DX: E11.21 Type 2 diabetes mellitus with diabetic nephropathy (principal); M86.8X7 Other osteomyelitis, ankle and foot; B95.7 Other staphylococcus as the cause of diseases classified elsewhere
CPT/HCPCS: 96365; J0878

== ENCOUNTER 2019-06-10 10:54 | Day surgery (SDC) | payer OTHER ==
[2019-06-10] MEDS ORDERED: DAPTOMYCIN 500 MG in SODIUM CHLORIDE 50 ML IVPB ONE (11:30)
[2019-06-10 12:37] VITALS: TEMP 98.2
[2019-06-10 17:04] VITALS: BP 114/81; PULSE 88
== END 2019-06-10 13:20 | disposition home or self-care (01) ==
LOC: JINFUSION 10:54 → JERBED 10:54 → J7W 10:57 → JINFUSION 13:20
PROVIDERS: ATTEND Internal Medicine Infectious Disease
DX: E11.21 Type 2 diabetes mellitus with diabetic nephropathy (principal); M86.8X7 Other osteomyelitis, ankle and foot; B95.7 Other staphylococcus as the cause of diseases classified elsewhere
CPT/HCPCS: 96365; J0878

== ENCOUNTER 2019-06-11 09:46 | Day surgery (SDC) | payer OTHER ==
[2019-06-11] MEDS ORDERED: DAPTOMYCIN 500 MG in SODIUM CHLORIDE 100 ML IVPB ONE (10:30)
[2019-06-11 17:16] VITALS: BP 123/79; PULSE 84; TEMP 98.1
== END 2019-06-11 11:30 | disposition home or self-care (01) ==
LOC: JINFUSION 09:46 → J7W 09:47 → JINFUSION 11:30
PROVIDERS: ATTEND Internal Medicine Infectious Disease
DX: E11.21 Type 2 diabetes mellitus with diabetic nephropathy (principal); M86.8X7 Other osteomyelitis, ankle and foot; B95.7 Other staphylococcus as the cause of diseases classified elsewhere
CPT/HCPCS: 96365; J0878

== ENCOUNTER 2019-06-12 11:21 | Day surgery (SDC) | payer OTHER ==
[2019-06-12 11:59] VITALS: TEMP 18
[2019-06-12 13:00] VITALS: BP 113/78; PULSE 95
== END 2019-06-12 12:43 | disposition home or self-care (01) ==
LOC: JINFUSION 11:21
PROVIDERS: ATTEND Internal Medicine Infectious Disease
DX: E11.21 Type 2 diabetes mellitus with diabetic nephropathy (principal); M86.8X7 Other osteomyelitis, ankle and foot; B95.7 Other staphylococcus as the cause of diseases classified elsewhere
CPT/HCPCS: 96365; J0878

== ENCOUNTER 2019-06-13 11:11 | Day surgery (SDC) | payer OTHER | END 2019-06-13 12:56 | disposition home or self-care (01) | LOC: JINFUSION 11:11 ==

== ENCOUNTER 2019-06-13 14:30 | Emergency (ER) | payer OTHER | END 2019-06-13 18:17 | disposition left against medical advice (07) | LOC: JER 14:30 ==

== ENCOUNTER → 2019-06-14 | Day surgery (SDC) | payer OTHER ==
[~2019-06-14] MED LIST changes: +DAPTOMYCIN 500 MG in SODIUM CHLORIDE 100 ML IVPB ONE; -DAPTOMYCIN 500 MG in SODIUM CHLORIDE 50 ML IVPB ONE
[2019-06-14 12:55] LABS: HEMOGLOBIN 13.7 GM/dL (11.7-16.9); MCHC 35.1 g/dl (32.0-35.9); MEAN CELL VOLUME 85.6 fl (80-96); MEAN PLT VOLUME 9.1 fl (7.5-11.1); PLATELET COUNT 244 K/MM3 (134-434); RBC 4.56 M/mm3 (4.00-5.60); RDW 13.7 % (11.9-15.9); WHITE BLOOD COUNT 7.3 K/mm3 (4.0-10.0)
[2019-06-14 13:45] LABS: BLOOD UREA NITROGEN 18.7 mg/dL (7-18); CALCIUM 9.6 mg/dL (8.5-10.1); CREATININE 0.7 mg/dL (0.55-1.3); POTASSIUM 4.8 mmol/L (3.5-5.1)
[2019-06-14 15:29] VITALS: BP 127/72; PULSE 94; TEMP 98.4
[2019-06-14 15:58] LABS: ERYTHROCYTE SEDIMENTATION RATE 12 mm/hr (0-10)
== END | disposition home or self-care (01) ==
LOC: JINFUSION 11:09
PROVIDERS: ATTEND Internal Medicine Infectious Disease
DX: E11.21 Type 2 diabetes mellitus with diabetic nephropathy (principal); M86.8X7 Other osteomyelitis, ankle and foot; B95.7 Other staphylococcus as the cause of diseases classified elsewhere
CPT/HCPCS: 36415; 80048; 82550; 85027; 85651; 86140; 96365; J0878

== ENCOUNTER 2019-06-15 10:59 | Day surgery (SDC) | payer OTHER | END 2019-06-15 12:10 | disposition home or self-care (01) | LOC: JINFUSION 10:59 ==

== ENCOUNTER 2019-06-17 10:47 | Day surgery (SDC) | payer OTHER ==
[2019-06-17] MEDS ORDERED: DAPTOMYCIN 500 MG in SODIUM CHLORIDE 50 ML IVPB ONE (11:30)
[2019-06-17 12:27] VITALS: TEMP 97.8
[2019-06-17 12:58] VITALS: BP 118/80; PULSE 83
== END 2019-06-17 12:59 | disposition home or self-care (01) ==
LOC: JINFUSION 10:47 → J7W 10:48 → JINFUSION 12:59
PROVIDERS: ATTEND Internal Medicine Infectious Disease
DX: E11.21 Type 2 diabetes mellitus with diabetic nephropathy (principal); M86.8X7 Other osteomyelitis, ankle and foot; B95.7 Other staphylococcus as the cause of diseases classified elsewhere
CPT/HCPCS: 96365; J0878

== ENCOUNTER 2019-06-18 09:21 | Day surgery (SDC) | payer OTHER | END 2019-06-18 14:43 | disposition home or self-care (01) | LOC: JINFUSION 09:21 → J7W 09:21 → JINFUSION 14:43 ==

== ENCOUNTER 2019-06-19 15:48 | Day surgery (SDC) | payer OTHER | END 2019-06-19 18:53 | disposition home or self-care (01) | LOC: JINFUSION 15:48 → J7W 16:04 → JINFUSION 18:53 ==

== ENCOUNTER 2019-06-20 15:41 | Day surgery (SDC) | payer OTHER ==
[2019-06-20] MEDS ORDERED: DAPTOMYCIN 500 MG in SODIUM CHLORIDE 50 ML IVPB ONE (16:30)
[2019-06-20 16:54] VITALS: BP 110/76; PULSE 98; TEMP 98.7
== END 2019-06-20 17:50 | disposition home or self-care (01) ==
LOC: JINFUSION 15:41 → J7W 15:48 → JINFUSION 17:50
PROVIDERS: ATTEND Internal Medicine Infectious Disease
DX: E11.21 Type 2 diabetes mellitus with diabetic nephropathy (principal); M86.8X7 Other osteomyelitis, ankle and foot; B95.7 Other staphylococcus as the cause of diseases classified elsewhere
CPT/HCPCS: 96365; J0878

== ENCOUNTER 2019-06-21 17:39 | Day surgery (SDC) | payer OTHER ==
[2019-06-21] MEDS ORDERED: DAPTOMYCIN 500 MG in SODIUM CHLORIDE 50 ML IVPB ONE (18:15)
[2019-06-21 19:47] LABS: BLOOD UREA NITROGEN 24.2 mg/dL (7-18); CALCIUM 9.3 mg/dL (8.5-10.1); CREATININE 1.2 mg/dL (0.55-1.3); POTASSIUM 4.1 mmol/L (3.5-5.1)
[2019-06-21 19:59] VITALS: BP 114/68; PULSE 98; TEMP 98.5
[2019-06-21 20:17] LABS: BASO % 0.4 % (0-2.0); EOS % 1.1 % (0-4.5); HEMOGLOBIN 12.8 GM/dL (11.7-16.9); LYMPH % 24.1 % (8-40); MCH 30.1 pg (25.7-33.7); MCHC 34.6 g/dl (32.0-35.9); MEAN PLT VOLUME 9.9 fl (7.5-11.1); MONO % 6.4 % (3.8-10.2); PLATELET COUNT 234 K/MM3 (134-434); RBC 4.25 M/mm3 (4.00-5.60); RDW 13.8 % (11.9-15.9); WHITE BLOOD COUNT 8.5 K/mm3 (4.0-10.0)
== END 2019-06-21 20:01 | disposition home or self-care (01) ==
LOC: JINFUSION 17:39 → J7W 17:40 → JINFUSION 20:01
PROVIDERS: ATTEND Internal Medicine Infectious Disease
DX: E11.21 Type 2 diabetes mellitus with diabetic nephropathy (principal); M86.8X7 Other osteomyelitis, ankle and foot; B95.7 Other staphylococcus as the cause of diseases classified elsewhere
CPT/HCPCS: 36415; 80048; 82550; 82553; 85025; 85651; 86140; 96365; 96366; J0878

== ENCOUNTER 2019-06-22 17:50 | Day surgery (SDC) | payer OTHER ==
[2019-06-22] MEDS ORDERED: DAPTOMYCIN 500 MG in SODIUM CHLORIDE 50 ML IVPB ONE (18:15)
[2019-06-22 18:39] VITALS: BP 110/70; PULSE 96; TEMP 99.1
== END 2019-06-22 20:25 | disposition home or self-care (01) ==
LOC: J7W 17:50 → JINFUSION 17:50
PROVIDERS: ATTEND Internal Medicine Infectious Disease
DX: E11.21 Type 2 diabetes mellitus with diabetic nephropathy (principal); M86.8X7 Other osteomyelitis, ankle and foot; B95.7 Other staphylococcus as the cause of diseases classified elsewhere
CPT/HCPCS: 96365; 96366; J0878

== ENCOUNTER 2019-06-23 09:58 | Day surgery (SDC) | payer OTHER ==
[2019-06-23] MEDS ORDERED: DAPTOMYCIN 500 MG in SODIUM CHLORIDE 50 ML IVPB ONE (12:00)
[2019-06-23 14:29] VITALS: BP 116/79; PULSE 79; TEMP 98.3
== END 2019-06-23 12:00 | disposition home or self-care (01) ==
LOC: JINFUSION 09:58
PROVIDERS: ATTEND Internal Medicine Infectious Disease
DX: E11.21 Type 2 diabetes mellitus with diabetic nephropathy (principal); M86.8X7 Other osteomyelitis, ankle and foot; B95.7 Other staphylococcus as the cause of diseases classified elsewhere
CPT/HCPCS: 96365; J0878

== ENCOUNTER 2019-06-24 11:17 | Day surgery (SDC) | payer OTHER ==
[2019-06-24] MEDS ORDERED: DAPTOMYCIN 500 MG in SODIUM CHLORIDE 50 ML IVPB ONE (12:00)
[2019-06-24 17:58] VITALS: TEMP 98.1
[2019-06-24 17:59] VITALS: BP 124/84; PULSE 81
== END 2019-06-24 12:45 | disposition home or self-care (01) ==
LOC: JINFUSION 11:17 → J7W 11:17 → JINFUSION 12:45
PROVIDERS: ATTEND Internal Medicine Infectious Disease
DX: E11.21 Type 2 diabetes mellitus with diabetic nephropathy (principal); M86.8X7 Other osteomyelitis, ankle and foot; B95.7 Other staphylococcus as the cause of diseases classified elsewhere
CPT/HCPCS: 96365; J0878

== ENCOUNTER 2019-06-25 09:54 | Day surgery (SDC) | payer OTHER ==
[2019-06-25] MEDS ORDERED: DAPTOMYCIN 500 MG in SODIUM CHLORIDE 50 ML IVPB ONE (10:30)
[2019-06-25 12:22] VITALS: BP 113/81; PULSE 80; TEMP 97.9
== END 2019-06-25 14:25 | disposition home or self-care (01) ==
LOC: JINFUSION 09:54 → J7W 09:55 → JINFUSION 14:25
PROVIDERS: ATTEND Internal Medicine Infectious Disease
DX: E11.21 Type 2 diabetes mellitus with diabetic nephropathy (principal); M86.8X7 Other osteomyelitis, ankle and foot; B95.7 Other staphylococcus as the cause of diseases classified elsewhere
CPT/HCPCS: 96365; 96366; J0878

== ENCOUNTER 2019-06-26 16:45 | Day surgery (SDC) | payer OTHER ==
[2019-06-26] MEDS ORDERED: DAPTOMYCIN 500 MG in SODIUM CHLORIDE 50 ML IVPB ONE (17:30)
[2019-06-26 18:51] VITALS: BP 115/72; PULSE 100; TEMP 97.8
== END 2019-06-26 18:56 | disposition home or self-care (01) ==
LOC: JINFUSION 16:45 → J7W 16:47 → JINFUSION 18:56
PROVIDERS: ATTEND Internal Medicine Infectious Disease
DX: E11.21 Type 2 diabetes mellitus with diabetic nephropathy (principal); M86.8X7 Other osteomyelitis, ankle and foot; B95.7 Other staphylococcus as the cause of diseases classified elsewhere
CPT/HCPCS: 96365; J0878

== ENCOUNTER 2019-06-27 13:19 | Day surgery (SDC) | payer OTHER ==
[2019-06-27] MEDS ORDERED: DAPTOMYCIN 500 MG in SODIUM CHLORIDE 50 ML IVPB ONE (14:15)
[2019-06-27 15:03] VITALS: TEMP 98.2
[2019-06-27 16:03] VITALS: BP 129/86; PULSE 94
== END 2019-06-27 16:03 | disposition home or self-care (01) ==
LOC: JINFUSION 13:19
PROVIDERS: ATTEND Internal Medicine Infectious Disease
DX: E11.21 Type 2 diabetes mellitus with diabetic nephropathy (principal); M86.8X7 Other osteomyelitis, ankle and foot; B95.7 Other staphylococcus as the cause of diseases classified elsewhere
CPT/HCPCS: 96365; J0878

== ENCOUNTER 2019-06-28 09:09 | Day surgery (SDC) | payer OTHER ==
[2019-06-28] MEDS ORDERED: DAPTOMYCIN 500 MG in SODIUM CHLORIDE 50 ML IVPB ONE (12:00)
[2019-06-28 12:14] VITALS: TEMP 97.9
[2019-06-28 13:26] VITALS: BP 123/76; PULSE 78
== END 2019-06-28 12:45 | disposition home or self-care (01) ==
LOC: JINFUSION 09:09
PROVIDERS: ATTEND Internal Medicine Infectious Disease
PROC: 05HY33Z Insertion of Infusion Device into Upper Vein, Percutaneous Approach (ICD-10-PCS; principal; 2019-06-28)
DX: E11.21 Type 2 diabetes mellitus with diabetic nephropathy (principal); M86.8X7 Other osteomyelitis, ankle and foot; B95.7 Other staphylococcus as the cause of diseases classified elsewhere
CPT/HCPCS: 36569; 36584; 77001-TC-FY; 96365; C1751; J0878

== ENCOUNTER 2019-06-29 16:30 | Day surgery (SDC) | payer OTHER ==
[2019-06-29] MEDS ORDERED: DAPTOMYCIN 500 MG in SODIUM CHLORIDE 50 ML IVPB ONE (17:00)
[2019-06-29 18:17] VITALS: PULSE 96; TEMP 98.2
[2019-06-29 19:04] VITALS: BP 117/80
== END 2019-06-29 19:07 | disposition home or self-care (01) ==
LOC: JINFUSION 16:30 → J7W 16:33 → JINFUSION 19:07
PROVIDERS: ATTEND Internal Medicine Infectious Disease
DX: E11.21 Type 2 diabetes mellitus with diabetic nephropathy (principal); M86.8X7 Other osteomyelitis, ankle and foot; B95.7 Other staphylococcus as the cause of diseases classified elsewhere
CPT/HCPCS: 96365; J0878

== ENCOUNTER 2019-06-30 17:36 | Day surgery (SDC) | payer OTHER ==
[2019-06-30 18:25] VITALS: TEMP 98.7
[2019-06-30] MEDS ORDERED: DAPTOMYCIN 500 MG in SODIUM CHLORIDE 50 ML IVPB ONE (18:30)
[2019-06-30 19:06] VITALS: BP 124/72; PULSE 96
== END 2019-06-30 19:07 | disposition home or self-care (01) ==
LOC: JINFUSION 17:36 → J7W 17:37 → JINFUSION 19:07
PROVIDERS: ATTEND Internal Medicine Infectious Disease
DX: E11.21 Type 2 diabetes mellitus with diabetic nephropathy (principal); M86.8X7 Other osteomyelitis, ankle and foot; B95.7 Other staphylococcus as the cause of diseases classified elsewhere
CPT/HCPCS: 96365; J0878

== ENCOUNTER 2019-07-01 14:46 | Day surgery (SDC) | payer OTHER ==
[2019-07-01 15:11] VITALS: BP 115/83; PULSE 104; TEMP 98.8
[2019-07-01] MEDS ORDERED: DAPTOMYCIN 500 MG in SODIUM CHLORIDE 50 ML IVPB ONE (17:00)
== END 2019-07-01 17:30 | disposition home or self-care (01) ==
LOC: JINFUSION 14:46 → J7W 14:47 → JINFUSION 17:30
PROVIDERS: ATTEND Internal Medicine Infectious Disease
DX: E11.21 Type 2 diabetes mellitus with diabetic nephropathy (principal); M86.8X7 Other osteomyelitis, ankle and foot; B95.7 Other staphylococcus as the cause of diseases classified elsewhere
CPT/HCPCS: 96365; J0878

== ENCOUNTER 2019-07-02 10:00 | Day surgery (SDC) | payer OTHER ==
[2019-07-02] MEDS ORDERED: DAPTOMYCIN 500 MG in SODIUM CHLORIDE 50 ML IVPB ONE (10:30)
[2019-07-02 12:26] VITALS: BP 131/83; PULSE 82; TEMP 98.1
== END 2019-07-02 12:05 | disposition home or self-care (01) ==
LOC: J7W 10:00 → JINFUSION 10:00
PROVIDERS: ATTEND Internal Medicine Infectious Disease
DX: E11.21 Type 2 diabetes mellitus with diabetic nephropathy (principal); M86.8X7 Other osteomyelitis, ankle and foot; B95.7 Other staphylococcus as the cause of diseases classified elsewhere
CPT/HCPCS: 96365; J0878

== ENCOUNTER 2019-07-03 17:36 | Day surgery (SDC) | payer OTHER ==
[2019-07-03] MEDS ORDERED: DAPTOMYCIN 500 MG in SODIUM CHLORIDE 100 ML IVPB ONE (18:00)
[2019-07-03 18:36] VITALS: TEMP 98.1
[2019-07-03 19:07] VITALS: BP 104/72; PULSE 92
== END 2019-07-03 19:08 | disposition home or self-care (01) ==
LOC: J7W 17:36 → JINFUSION 17:36 → JSAMEDAYSX 17:39 → J7W 17:52 → JINFUSION 19:08
PROVIDERS: ATTEND Internal Medicine Infectious Disease
DX: E11.21 Type 2 diabetes mellitus with diabetic nephropathy (principal); M86.8X7 Other osteomyelitis, ankle and foot; B95.7 Other staphylococcus as the cause of diseases classified elsewhere
CPT/HCPCS: 96365; J0878

== ENCOUNTER 2019-07-04 11:14 | Day surgery (SDC) | payer OTHER ==
[2019-07-04] MEDS ORDERED: DAPTOMYCIN 500 MG in SODIUM CHLORIDE 100 ML IVPB ONE (12:00)
[2019-07-04 12:34] VITALS: BP 121/85; PULSE 82; TEMP 98.5
== END 2019-07-04 13:15 | disposition home or self-care (01) ==
LOC: JINFUSION 11:14 → J7W 11:28 → JINFUSION 13:15
PROVIDERS: ATTEND Internal Medicine Infectious Disease
DX: E11.21 Type 2 diabetes mellitus with diabetic nephropathy (principal); M86.8X7 Other osteomyelitis, ankle and foot; B95.7 Other staphylococcus as the cause of diseases classified elsewhere
CPT/HCPCS: 96365; 97597; J0878

== ENCOUNTER 2019-09-28 15:00 | Emergency (ER) | payer OTHER ==
--- NOTE | 2019-09-28 16:05 | PDOC ---
History of Present Illness - General Chief Complaint: Back Pain Stated Complaint: BACK PAIN Time Seen by Provider: 09/28/19 16:05 History Source: Patient - History of Present Illness Initial Comments: 43 year old male with PMH chronic back pain, NIDDM, osteomyelitis presented to ED for right sided back pain xa couple of days. Pt reported he felt this pain initially 20 years ago, but it improved and he never had it worked up. Pt reported around 1 week ago he felt his pain start up again after falling down a few steps, and it has been intermittently bothering him since then. Pt denied weight loss, loss of bowel/bladder function, fever, blood in stool, hx malignancy, neurological changes, genital/saddle numbness/tingling. ROS General: denied fever, chills, generalized weakness. HEENT: denied sore throat, rhinorrhea, ear pain. Cardiovascular: denied chest pain, palpitations, syncope, diaphoresis. Respiratory: denied shortness of breath, cough, sputum production, hemoptysis. Gastrointestinal: denied abdominal pain, nausea, vomiting, diarrhea, constipation, blood in stool. Genitourinary: denied dysuria, increased urinary frequency, hematuria, urinary incontinence, flank pain. Back: admitted to back pain. Musculoskeletal: denied joint pain, muscle pain, joint swelling. Neurological: denied headache, dizziness, numbness, tingling, weakness. Integumentary: denied rash, laceration, abrasion. Hematologic/Lymphatic: denied bruising or bleeding. PE Constitutional: Well-nourished, Well-developed, appearing stated age. HEENT: head is normocephalic, atraumatic. EOMI. PERRLA. Neck: supple. Full ROM. Cardiovascular: regular heart rhythm. no murmurs. no pericardial friction rub. Respiratory: clear to auscultation bilaterally. no crackles, rhonchi or wheezing. no stridor. Gastrointestinal: soft, nontender. normal bowel sounds. no rebound, guarding, masses. Extremities: peripheral pulses intact. no lower extremity edema. Back: no midline T-spine or L-spine tenderness to palpation. positive paraspinal T and L-spine tenderness to palpation. no rash. Neurological: CN 2-12 grossly intact. moves all four extremities. Psych: awake, alert, oriented x3. follows commands. answers questions appropriately. Past History - Past Medical History Allergies/Adverse Reactions: Allergies Allergy/AdvReac Type Severity Reaction Status Date / Time No Known Allergies Allergy Verified 06/13/19 14:44 Home Medications: Ambulatory Orders Metformin HCl [Glucophage] 500 mg PO DAILY 06/06/19 Glipizide [Glipizide Xl] 2.5 mg PO DAILY 09/28/19 Ibuprofen [Motrin -] 600 mg PO TID PRN #30 tablet MDD 3 09/28/19 Lidocaine 5% Patch [Lidoderm Patch -] 1 patch TP DAILY #7 patch 09/28/19 Oxycodone HCl/Acetaminophen [Percocet 5-325 mg Tablet] 1 tab PO Q4H PRN #15 tablet NS MDD 6 09/28/19 - Psycho Social/Smoking Cessation Hx Smoking History: Never smoked Have you smoked in the past 12 months: No Hx Alcohol Use: No Drug/Substance Use Hx: No Medical Decision Making - Medical Decision Making 43 year old male with above PMH presented to ED for right sided back pain x2 months, worsening over the last few days. Initial Vital Signs Temp Pulse Resp BP Pulse Ox 98.2 F 80 16 120/81 98 09/28/19 15:51 09/28/19 15:51 09/28/19 15:51 09/28/19 15:51 09/28/19 15:51 Afebrile. No tachycardia. No tachypnea. No hypotension. No hypoxia on room air. Labs ordered: none Imaging ordered: thoracic spine XR, right rib series XR, CXR Medications ordered: ibuprofen 600 mg PO once, lidoderm patch, robaxin 1000 mg PO once 09/28/19 18:[address] Feldman's view show no acute fracture/dislocation. -Pending official reports Pt reported no improvement of pain. Medications ordered: Perocet 1 tab Will discharge with Perocet prescription, Lidoderm patch prescription, Robaxin prescription, high dose ibuprofen prescription. 09/30/19 18:52 Follow up: Official CXR report: RADIOLOGY Phys: Elsi Rawls RESIDENT : 1975 Age: 43 Sex: M [facility] Acct: [id number] Loc: [address] Exam Date: 09/28/19 Status: [facility] [place] [address] Unit Number: [id number] EXAM#: TYPE/EXAM: RESULT: [id number] RAD/CHEST PA LAT Chest: Back pain. Fall. 2 views of the chest reveal degenerative changes with wedging, clear lungs, normal mediastinum and sharp angles. An acute process is not seen. Since 06/13/2019 the right line has been removed. An acute process is not occurred. Reported By: Miguel Valdivia MD 09/28 191 Official thoracic spine XR report: Name: [facility] Phys: Elsi Rawls RESIDENT : 1975 Age: 43 Sex: M [facility] Acct: [id number] Loc: [facility] [address] Exam Date: 09/28 Status: [place] [id number] Unit Number: [id number] EXAM#: TYPE/EXAM: RESULT: [id number] RAD/SPINE- THORACIC Thoracic spine: Pain. Tenderness. 2 views of the thoracic spine reveal degenerative changes with wedging, intact paraspinal and prevertebral soft tissues and no sign of blastic or lytic changes. A fracture or subluxation is not seen. If symptoms persist, further imaging may be of help. Reported By: Miguel Valdivia MD 09/28/191948 Official Right Rib Series report: Name: [facility] Phys: Elsi Rawls RESIDENT : 1975 Age: 43 Sex: M [facility] Acct: [id number] Loc: [facility] [address] Exam Date: 09/28 Status: [place] [address] Unit Number: [id number] EXAM#: TYPE/EXAM: RESULT: [id number] RAD/RIBS RIGHT SIDE Chest and right RIBS: Pain. An AP view of the chest reveals clear well- aerated lungs, normal mediastinum and sharp angles. The bones and soft tissues are intact. 4 images of the right ribs reveal is no sign of a gross fracture. A pneumothorax, pleural fluid or atelectasis is not seen. A marker has not been placed with there is specific pain. If symptoms persist, further imaging may be of help. Impression: No acute chest or right rib pathology. Reported By: Miguel Valdivia MD 09/28/191947 Discharge - Discharge Information Problems reviewed: Yes Clinical Impression/Diagnosis: Back pain Condition: Stable Disposition: HOME - Admission No - Additional Discharge Information Prescriptions: Ibuprofen [Motrin -] 600 mg PO TID PRN #30 tablet MDD 3 PRN Reason: Pain Lidocaine 5% Patch [Lidoderm Patch -] 1 patch TP DAILY #7 patch Oxycodone HCl/Acetaminophen [Percocet 5-325 mg Tablet] 1 tab PO Q4H PRN #15 tablet NS MDD 6 PRN Reason: Pain - Follow up/Referral Referrals: Dusty Ross MD [Staff Physician] - Gerhard Hoover MD [Staff Physician] - Lisandro Luna DO [Staff Physician] - Triston Brewer DO [Staff Physician] - - Patient Discharge Instructions Patient Printed Discharge Instructions: DI for Thoracic Back Pain Additional Instructions: Follow up with your primary care doctor within 3 days. Your care is not complete until you follow up. I have provided you with a referral for an orthopedic doctor should your pain not improve. Call if you pain has not improved in the next 3 days. I have sent a prescription to your pharmacy for Perocet. Take as advised on label as needed for pain. I have sent a prescription to your pharmacy for high dose ibuprofen. Take as advised on label. Take with food as this medication can irritate your stomach. I have sent a prescription to your pharmacy for Lidoderm patches. Use as advised on label. If the medication is too expensive you can alternatively buy them over the counter with only 1% less medicine. Ask your pharmacist to help you. Return to the Emergency Department for chest pain, shortness of breath, blood in urine, blood in cough, vomiting, fever, lightheadedness, numbness, tingling, increasing pain or any other new, worsening or concerning symptoms. [place] TRANSLATION PROVIDED BY [employer] TRANSLATE Samia un seguimiento con ambrosio mdico de atencin primaria dentro de los 3 villar. Abmrosio atencin no estar completa hasta que realice el seguimiento. Le proporcion remington referencia para un mdico ortopdico en alex de que ambrosio dolor no mejore. Llame si ambrosio dolor no ponce tiff en los prximos 3 villar. He enviado remington receta a ambrosio farmacia para Perocet. Tmelo maria se indica en la etiqueta segn sea necesario para el dolor. He enviado remington receta a ambrosio farmacia para dosis altas de ibuprofeno. Tmelo maria se indica en la etiqueta. Tmelo con alimentos ya que arcadio medicamento puede irritar ambrosio estmago. He enviado remington receta a ambrosio farmacia para parches de Lidoderm. Use segn lo recomendado en la etiqueta. Si el medicamento es demasiado dixon, usha puede comprarlo sin receta mdica con solo un 1% menos de medicamento. Pdale ayuda a ambrosio farmacutico. Regrese a la johnnie de emergencias por dolor en el pecho, falta de aliento, yrn en la orina, yrn en la tos, vmitos, fiebre, aturdimiento, entumecimiento, hormigueo, aumento del dolor o cualquier otro sntoma nuevo, que empeore o se relacione. - Post Discharge Activity Work/Back to School Note: Back to Work
[2019-09-28] MEDS ORDERED: LIDOCAINE 5% TOPICAL PATCH TP ONE (16:24)
[2019-09-28] MEDS ORDERED: IBUPROFEN 600 MG TABLET (FP) PO ONE ×2 (16:24→16:28)
[2019-09-28] MEDS ORDERED: LIDOCAINE 5% TOPICAL PATCH ONE (16:28)
--- NOTE | 2019-09-28 16:44 | PDOC ---
Attending Attestation - Resident Resident Name: CurlyElsi - ED Attending Attestation I have performed the following: I have examined & evaluated the patient, The case was reviewed & discussed with the resident, I agree w/resident's findings & plan, Exceptions are as noted - HPI HPI: 09/28/19 16:39 43 yo male with h/o chronic upper back pain here with c/o upper back pain x 2 months, worse the last few days. no new injuyr. no f/c no new weakness numbness or tingling. did take aleve 3 hrs ago. pain is worse wtih movement and twisting. when twist to right has severe pain. no f/c patient states he did have a fall 1 week ago when he slid down some steps on his back. Has been having pain ever since denies any shortness of breath no new weakness no other complaints no association with food no urinary symptoms. 09/28/19 17:04 - Physicial Exam PE: 09/28/19 16:44 awake alert lungs clear bilat Right posterior mid rib tenderness no step-off no crepitus. No midline bony tenderness. No anterior rib tendernessheart rrr no mrg abd soft nt nd ext wwp. no edema. sensation intact bilat upper ext lower ext. Skin is warm and dry no ecchymosis GCS 15 09/28/19 17:04 - Medical Decision Making 09/28/19 16:44 43 yo male h/o upper back pain, took aleve. no relief. will add tylenol. possible muscle relaxer. no significant nuero compromise. Differential includes rib fracture spinal fracture no signs of neural compromise. Chest x- ray with rib series and thoracic spine if negative will DC home with Ortho follow-up pain control and muscle relaxers 09/28/19 17:05 09/28/19 18:03 pt cxr negative. thoracic spine negative. due to tenderness on exam. will treat as occult fracture. given percocet rx. and incentive spirometer. told to fu with pcp.
[2019-09-28] MEDS ORDERED: METHOCARBAMOL 500 MG TABLET PO ONE (16:52)
[2019-09-28] MEDS ORDERED: METHOCARBAMOL 500 MG TABLET ONE (17:14)
[2019-09-28 17:27] VITALS: BP 120/81; PULSE 80; TEMP 98.2; BMI 26.6
[2019-09-28] MEDS ORDERED: LIDOCAINE PATCH REMOVAL MC SCH (22:00)
== END 2019-09-28 18:34 | disposition home or self-care (01) ==
LOC: FER 15:00
DX: M54.9 Dorsalgia, unspecified (principal); G89.29 Other chronic pain; E11.9 Type 2 diabetes mellitus without complications; Z79.84 Long term (current) use of oral hypoglycemic drugs
CPT/HCPCS: 71046-TC-FY; 71101-TC-RT-FY; 72070-TC-FY; 99282-25

== ENCOUNTER 2023-10-15 11:44 | Emergency (ER) | payer SELFPAY ==
[2023-10-15 11:59] VITALS: TEMP 97.9; BMI 29.9
[2023-10-15 12:33] VITALS: RESP 16
[2023-10-15] MEDS ORDERED: CARBAMIDE PEROXIDE 6.5% OTIC 15 ML BOTTLE AS ONE (13:01)
[2023-10-15] MEDS ORDERED: ACETAMINOPHEN 1000 MG/100 ML BAG IVPB ONE (13:01)
[2023-10-15] MEDS ORDERED: METOCLOPRAMIDE HCL INJECTION 10 MG/2 ML VIAL IM ONE (13:01)
[2023-10-15] MEDS ORDERED: MECLIZINE HCL 25 MG TABLET (FP) PO ONE (13:01)
[2023-10-15] MEDS ORDERED: METOCLOPRAMIDE HCL INJECTION 10 MG/2 ML VIAL ONE (13:05)
[2023-10-15] MEDS ORDERED: CARBAMIDE PEROXIDE 6.5% OTIC 15 ML BOTTLE ONE (13:05)
[2023-10-15] MEDS ORDERED: ACETAMINOPHEN INJECTION 100 ML IVPB ONE (13:06)
[2023-10-15] MEDS ORDERED: METOCLOPRAMIDE HCL INJECTION 10 MG/2 ML VIAL IVPUSH ONE (13:06)
[2023-10-15] MEDS ORDERED: MECLIZINE HCL 25 MG TABLET (FP) ONE (13:06)
[2023-10-15 13:44] VITALS: BP 122/74; PULSE 86
[2023-10-15 13:53] LABS: INR 0.97 (0.83-1.09); PROTHROMBIN TIME (PATIENT) 11.2 SEC (9.7-13.0)
[2023-10-15 13:55] LABS: ACTIVATED PTT 27.3 SECONDS (25.2-36.5)
[2023-10-15 13:57] LABS: HEMATOCRIT 40.8 % (35.4-49); MCH 28.9 pg (25.7-33.7); MCHC 34.3 g/dl (32.0-35.9); MEAN CELL VOLUME 84.4 fl (80-96); MEAN PLT VOLUME 9.4 fl (7.5-11.1); PLATELET COUNT 187.9 10^3/uL (134-434); RBC 4.83 10^6/uL (4.00-5.60); RDW 14.2 % (11.9-15.9); WHITE BLOOD COUNT 5.4 10^3/uL (4.0-10.8)
[2023-10-15 14:09] LABS: ALBUMIN 4.3 g/dl (3.4-5.0); ALK PHOS 96 U/L (45-117); ANION GAP 14 mmol/L (4-13); BILIRUBIN,TOTAL 0.7 mg/dl (0.2-1); CALCIUM 9.4 mg/dl (8.5-10.1); CHLORIDE 93 mmol/L (98-107); CO2 28 mmol/L (21-32); CREATININE 0.7 mg/dl (0.6-1.3); GLUCOSE,RANDOM 260 mg/dl (74-106); POTASSIUM 4.3 mmol/L (3.5-5.1); SGOT/AST 14 U/L (15-37); SGPT/ALT 14 U/L (7-52); SODIUM 135 mmol/L (136-145); TOT PROT 6.9 g/dl (6.4-8.2)
[2023-10-15] MEDS ORDERED: ACETAMINOPHEN 325 MG TABLET (FP) PO ONE (15:02)
[2023-10-15] MEDS ORDERED: ACETAMINOPHEN 325 MG TABLET (FP) ONE (15:13)
[2023-10-15 15:35] LABS: PLATELET ESTIMATE ADEQUATE
== END 2023-10-15 15:15 | disposition home or self-care (01) ==
LOC: FER 11:44
PROC: 3E033GC Introduction of Other Therapeutic Substance into Peripheral Vein, Percutaneous Approach (ICD-10-PCS; principal; 2023-10-15)
DX: R42 Dizziness and giddiness (principal); R51.9 Headache, unspecified; R07.9 Chest pain, unspecified; R06.02 Shortness of breath; H92.02 Otalgia, left ear; R11.0 Nausea; Z20.822 Contact with and (suspected) exposure to COVID-19
CPT/HCPCS: 0241U-QW; 36415; 71045-TC-FY; 80053; 82962; 84484; 85027; 85610; 85730; 93005; 99285-25